=== PATIENT | male | born 1970 | race Caucasian/White ===

== ENCOUNTER 2022-04-14 08:29 | Outpatient (REF) | payer OTHER, SELFPAY ==
--- NOTE | ~2022-04-14 | XR_ITS ---
EXAMINATION: XR ANKLE, RIGHT XR ANKLE, LEFT XR FOOT, RIGHT XR FOOT, LEFT CLINICAL INFORMATION: Gout. COMPARISON: None TECHNIQUE: Each ankle is imaged in 2 views and each foot is imaged in 2 views. There is a lateral view on each side with [id number] to include both the ankle and foot. There are a total of 10 views, 5 on each side. FINDINGS: Right: There is normal bony mineralization. No periarticular demineralization. The ankle and subtalar joints are unremarkable. The retrocalcaneal recess is preserved. There is bulky posterior and moderate plantar calcaneal spurs. The midfoot shows no joint narrowing or erosive change. There is mild degenerative change first MTP. There are osteoarthritic changes third toe DIP joint with questionable small central erosion which may suggest erosive osteoarthropathy. The remainder of the interphalangeal joints are unremarkable. There are no para-articular erosions or mineralized tophus. Left: There is normal bony mineralization. No periarticular demineralization. The ankle and subtalar joints are unremarkable. The retrocalcaneal recess is preserved. There is moderate posterior and small plantar calcaneal spurs. The midfoot shows no joint narrowing or erosive change. There is mild degenerative change first MTP, greater than that on the right with mild medial bunion. There are osteoarthritic changes DIP joints second and third toes. The remainder of the interphalangeal joints are unremarkable. There are no para-articular erosions or mineralized tophus. XR/XR foot RT min 3V IMPRESSION: Right: -Posterior and plantar calcaneal spurs. -Osteoarthritis first MTP. No para-articular erosion or mineralized tophus. -Osteoarthritis third toe DIP joint with questionable small central erosion. Left: -Posterior and plantar calcaneal spurs. -Osteoarthritis first MTP greater than right. No para-articular erosion or mineralized tophus. -Osteoarthritis second and third toe DIP joints. 5. Moderate posterior and moderate plantar calcaneal spurs. 6. Osteoarthritis DIP joints second and third toes. No para-articular erosions or mineralized tophus.
--- NOTE | ~2022-04-14 | XR_ITS ---
EXAMINATION: XR HAND WRIST, RIGHT XR HAND WRIST, LEFT CLINICAL INFORMATION: Arthritis. COMPARISON: None TECHNIQUE: Each hand and wrist are imaged in 3 views. A navicular view of each wrist is also obtained. There are a total of 8 views, 4 on each side. FINDINGS: Right: Normal bony mineralization. No periarticular demineralization. No fracture or dislocation or destructive process. Ulnar variance is neutral. Mild degenerative change first carpometacarpal joint. No carpal erosive change or chondrocalcinosis. Incidental small cyst central lunate. The MCP and PIP joints are unremarkable. There are mild degenerative changes DIP joints, moderate at the fifth finger DIP joint. No erosive change. Left: Normal bony mineralization. No periarticular demineralization. No fracture or dislocation or destructive process. Ulnar variance is neutral. No carpal joint narrowing, erosive change or chondrocalcinosis. Incidental small cyst central lunate. The MCP and PIP joints are unremarkable. There are mild changes DIP joints, moderate to prominent at the fifth finger DIP joint. No erosive change. XR/XR hand wrist RT IMPRESSION: Right: -Mild degenerative change first CMC. -Mild osteoarthritis DIP joints, moderate at fifth finger. Left: -Mild osteoarthritis DIP joints, moderate to prominent at fifth finger.
--- NOTE | ~2022-04-14 | XR_ITS ---
EXAMINATION: XR ANKLE, RIGHT XR ANKLE, LEFT XR FOOT, RIGHT XR FOOT, LEFT CLINICAL INFORMATION: Gout. COMPARISON: None TECHNIQUE: Each ankle is imaged in 2 views and each foot is imaged in 2 views. There is a lateral view on each side with [id number] to include both the ankle and foot. There are a total of 10 views, 5 on each side. FINDINGS: Right: There is normal bony mineralization. No periarticular demineralization. The ankle and subtalar joints are unremarkable. The retrocalcaneal recess is preserved. There is bulky posterior and moderate plantar calcaneal spurs. The midfoot shows no joint narrowing or erosive change. There is mild degenerative change first MTP. There are osteoarthritic changes third toe DIP joint with questionable small central erosion which may suggest erosive osteoarthropathy. The remainder of the interphalangeal joints are unremarkable. There are no para-articular erosions or mineralized tophus. Left: There is normal bony mineralization. No periarticular demineralization. The ankle and subtalar joints are unremarkable. The retrocalcaneal recess is preserved. There is moderate posterior and small plantar calcaneal spurs. The midfoot shows no joint narrowing or erosive change. There is mild degenerative change first MTP, greater than that on the right with mild medial bunion. There are osteoarthritic changes DIP joints second and third toes. The remainder of the interphalangeal joints are unremarkable. There are no para-articular erosions or mineralized tophus. XR/XR foot LT min 3V IMPRESSION: Right: -Posterior and plantar calcaneal spurs. -Osteoarthritis first MTP. No para-articular erosion or mineralized tophus. -Osteoarthritis third toe DIP joint with questionable small central erosion. Left: -Posterior and plantar calcaneal spurs. -Osteoarthritis first MTP greater than right. No para-articular erosion or mineralized tophus. -Osteoarthritis second and third toe DIP joints. 5. Moderate posterior and moderate plantar calcaneal spurs. 6. Osteoarthritis DIP joints second and third toes. No para-articular erosions or mineralized tophus.
--- NOTE | ~2022-04-14 | XR_ITS ---
EXAMINATION: XR ANKLE, RIGHT XR ANKLE, LEFT XR FOOT, RIGHT XR FOOT, LEFT CLINICAL INFORMATION: Gout. COMPARISON: None TECHNIQUE: Each ankle is imaged in 2 views and each foot is imaged in 2 views. There is a lateral view on each side with [id number] to include both the ankle and foot. There are a total of 10 views, 5 on each side. FINDINGS: Right: There is normal bony mineralization. No periarticular demineralization. The ankle and subtalar joints are unremarkable. The retrocalcaneal recess is preserved. There is bulky posterior and moderate plantar calcaneal spurs. The midfoot shows no joint narrowing or erosive change. There is mild degenerative change first MTP. There are osteoarthritic changes third toe DIP joint with questionable small central erosion which may suggest erosive osteoarthropathy. The remainder of the interphalangeal joints are unremarkable. There are no para-articular erosions or mineralized tophus. Left: There is normal bony mineralization. No periarticular demineralization. The ankle and subtalar joints are unremarkable. The retrocalcaneal recess is preserved. There is moderate posterior and small plantar calcaneal spurs. The midfoot shows no joint narrowing or erosive change. There is mild degenerative change first MTP, greater than that on the right with mild medial bunion. There are osteoarthritic changes DIP joints second and third toes. The remainder of the interphalangeal joints are unremarkable. There are no para-articular erosions or mineralized tophus. XR/XR ankle RT min 3V IMPRESSION: Right: -Posterior and plantar calcaneal spurs. -Osteoarthritis first MTP. No para-articular erosion or mineralized tophus. -Osteoarthritis third toe DIP joint with questionable small central erosion. Left: -Posterior and plantar calcaneal spurs. -Osteoarthritis first MTP greater than right. No para-articular erosion or mineralized tophus. -Osteoarthritis second and third toe DIP joints. 5. Moderate posterior and moderate plantar calcaneal spurs. 6. Osteoarthritis DIP joints second and third toes. No para-articular erosions or mineralized tophus.
--- NOTE | ~2022-04-14 | XR_ITS ---
EXAMINATION: XR HAND WRIST, RIGHT XR HAND WRIST, LEFT CLINICAL INFORMATION: Arthritis. COMPARISON: None TECHNIQUE: Each hand and wrist are imaged in 3 views. A navicular view of each wrist is also obtained. There are a total of 8 views, 4 on each side. FINDINGS: Right: Normal bony mineralization. No periarticular demineralization. No fracture or dislocation or destructive process. Ulnar variance is neutral. Mild degenerative change first carpometacarpal joint. No carpal erosive change or chondrocalcinosis. Incidental small cyst central lunate. The MCP and PIP joints are unremarkable. There are mild degenerative changes DIP joints, moderate at the fifth finger DIP joint. No erosive change. Left: Normal bony mineralization. No periarticular demineralization. No fracture or dislocation or destructive process. Ulnar variance is neutral. No carpal joint narrowing, erosive change or chondrocalcinosis. Incidental small cyst central lunate. The MCP and PIP joints are unremarkable. There are mild changes DIP joints, moderate to prominent at the fifth finger DIP joint. No erosive change. XR/XR hand wrist LT IMPRESSION: Right: -Mild degenerative change first CMC. -Mild osteoarthritis DIP joints, moderate at fifth finger. Left: -Mild osteoarthritis DIP joints, moderate to prominent at fifth finger.
--- NOTE | ~2022-04-14 | XR_ITS ---
EXAMINATION: XR ANKLE, RIGHT XR ANKLE, LEFT XR FOOT, RIGHT XR FOOT, LEFT CLINICAL INFORMATION: Gout. COMPARISON: None TECHNIQUE: Each ankle is imaged in 2 views and each foot is imaged in 2 views. There is a lateral view on each side with [id number] to include both the ankle and foot. There are a total of 10 views, 5 on each side. FINDINGS: Right: There is normal bony mineralization. No periarticular demineralization. The ankle and subtalar joints are unremarkable. The retrocalcaneal recess is preserved. There is bulky posterior and moderate plantar calcaneal spurs. The midfoot shows no joint narrowing or erosive change. There is mild degenerative change first MTP. There are osteoarthritic changes third toe DIP joint with questionable small central erosion which may suggest erosive osteoarthropathy. The remainder of the interphalangeal joints are unremarkable. There are no para-articular erosions or mineralized tophus. Left: There is normal bony mineralization. No periarticular demineralization. The ankle and subtalar joints are unremarkable. The retrocalcaneal recess is preserved. There is moderate posterior and small plantar calcaneal spurs. The midfoot shows no joint narrowing or erosive change. There is mild degenerative change first MTP, greater than that on the right with mild medial bunion. There are osteoarthritic changes DIP joints second and third toes. The remainder of the interphalangeal joints are unremarkable. There are no para-articular erosions or mineralized tophus. XR/XR ankle LT min 3V IMPRESSION: Right: -Posterior and plantar calcaneal spurs. -Osteoarthritis first MTP. No para-articular erosion or mineralized tophus. -Osteoarthritis third toe DIP joint with questionable small central erosion. Left: -Posterior and plantar calcaneal spurs. -Osteoarthritis first MTP greater than right. No para-articular erosion or mineralized tophus. -Osteoarthritis second and third toe DIP joints. 5. Moderate posterior and moderate plantar calcaneal spurs. 6. Osteoarthritis DIP joints second and third toes. No para-articular erosions or mineralized tophus.
[2022-04-14 08:56] LABS: MANUAL DIFF FLAG NO
[2022-04-14 09:34] LABS: Basophils Absolute Auto 0.1 X10*3/uL (0.0-0.2); Basophils Percent Auto 1.4 % (0-2); Eosinophils Absolute Auto 0.2 X10*3/uL (0.0-0.4); Eosinophils Percent Auto 3.6 % (0-4); Hemoglobin 15.1 g/dl (14.0-18.0); Imm Gran Abs Auto 0.01 X10*3/uL (0.00-0.03); Imm Gran Pct Auto 0.2 % (0.0-0.4); Lymphocytes Percent Auto 45.6 % (20-40); Mean Corpuscular HGB Conc 35.1 g/dl (31.0-36.0); Mean Corpuscular Hemoglobin 31.4 pg (27.0-33.0); Mean Corpuscular Volume 89.4 fL (80.0-98.0); Mean Platelet Volume 9.3 fL (9.4-12.4); Monocytes Absolute Auto 0.4 X10*3/uL (0.1-1.2); Monocytes Percent Auto 8.8 % (2-11); Neutrophils Absolute Auto 1.8 x10*3/uL (2.0-8.3); Neutrophils Percent Auto 40.4 % (45-73); Platelet Count 278 X10*3/uL (160-400); Red Blood Count 4.81 X10*6/uL (4.60-5.80); White Blood Count 4.4 X10*3/uL (4.8-10.8)
[2022-04-14 09:47] LABS: Estimated Average Glucose 94 mg/dL; Hemoglobin A1c % 4.9 %
[2022-04-14 10:34] LABS: Appearance Urine Clear; Color Urine Yellow; Glucose Urine UA Negative (Negative); Leukocyte Esterase Urine Negative (Negative); Nitrite Urine Negative (Negative); PH 7.5 (5.0-9.0); Urine Blood Negative (Negative); Urine Ketones Negative (Negative); Urine Protein Negative (Neg-Trace)
[2022-04-14 10:39] LABS: Bacteria Urine None Seen (None Seen); Hyaline Casts Urine 0-2 /LPF (0-2); RBC Urine 0-2 /HPF (0-2); Squamous Epithelial Cell Urine 0-2 /HPF (0-2); WBC Urine 0-5 /HPF (0-5)
[2022-04-14 10:58] LABS: Alanine Aminotransferase 25 U/L (0-40); Alkaline Phosphatase 76 U/L (39-117); Anion Gap 14 (12-20); Aspartate Amino Transferase 21 U/L (5-37); Bilirubin Total 0.5 mg/dL (0.0-1.0); Blood Urea Nitrogen 13 mg/dL (9-16); Calcium 8.8 mg/dL (8.4-10.2); Carbon Dioxide 25 mmol/L (22-29); Chloride 106 mmol/L (96-108); Estimated Glomerular Filt Rate > 60; Glucose Random 106 mg/dL (60-115); Potassium 4.1 mmol/L (3.3-5.1); Sodium 141 mmol/L (135-145); Total Protein 6.9 g/dL (6.5-8.0); Uric Acid 7.1 mg/dL (3.4-7.0)
[2022-04-14 11:04] LABS: Total Protein Urine Random < 7 mg/dL (<12)
== END 2022-04-14 08:30 | disposition home or self-care (01) ==
LOC: HO.LAB 08:29
PROVIDERS: PCP Internal Medicine; Visit Provider Student in an Organized Health Care Education/Training Program
DX: M10.9 Gout, unspecified (principal); E66.9 Obesity, unspecified
CPT/HCPCS: 36415; 73110; 73130; 73610; 73630; 80053; 81001; 83036; 84156; 84550; 85025

== ENCOUNTER 2022-06-29 14:30 | Outpatient (REF) | payer OTHER, SELFPAY ==
[2022-06-29 14:45] LABS: MANUAL DIFF FLAG NO
[2022-06-29 14:58] LABS: Basophils Absolute Auto 0.1 X10*3/uL (0.0-0.2); Basophils Percent Auto 0.9 % (0-2); Eosinophils Absolute Auto 0.2 X10*3/uL (0.0-0.4); Eosinophils Percent Auto 3.3 % (0-4); Hematocrit 44.1 % (42.0-52.0); Hemoglobin 15.5 g/dl (14.0-18.0); Imm Gran Abs Auto 0.01 X10*3/uL (0.00-0.03); Imm Gran Pct Auto 0.1 % (0.0-0.4); Lymphocytes Absolute Auto 2.9 X10*3/uL (1.2-4.9); Lymphocytes Percent Auto 41.8 % (20-40); Mean Corpuscular HGB Conc 35.1 g/dl (31.0-36.0); Mean Corpuscular Volume 88.2 fL (80.0-98.0); Mean Platelet Volume 8.9 fL (9.4-12.4); Monocytes Absolute Auto 0.4 X10*3/uL (0.1-1.2); Monocytes Percent Auto 6.4 % (2-11); Neutrophils Absolute Auto 3.3 x10*3/uL (2.0-8.3); Neutrophils Percent Auto 47.5 % (45-73); Platelet Count 287 X10*3/uL (160-400); White Blood Count 6.9 X10*3/uL (4.8-10.8)
[2022-06-29 15:41] LABS: Alanine Aminotransferase 28 U/L (0-40); Alkaline Phosphatase 72 U/L (39-117); Anion Gap 13 (12-20); Aspartate Amino Transferase 21 U/L (5-37); Bilirubin Total 0.4 mg/dL (0.0-1.0); Blood Urea Nitrogen 13 mg/dL (9-16); Calcium 9.2 mg/dL (8.4-10.2); Carbon Dioxide 31 mmol/L (22-29); Chloride 102 mmol/L (96-108); Estimated Glomerular Filt Rate > 60; Glucose Random 113 mg/dL (60-115); Sodium 142 mmol/L (135-145)
== END 2022-06-29 14:31 | disposition home or self-care (01) ==
LOC: HO.LAB 14:30
PROVIDERS: PCP Internal Medicine; Visit Provider Student in an Organized Health Care Education/Training Program
DX: M10.9 Gout, unspecified (principal)
CPT/HCPCS: 36415; 80053; 84550; 85025

== ENCOUNTER → 2022-07-05 14:54 | Outpatient (BNVA) | payer OTHER, SELFPAY | PROVIDERS: PCP Internal Medicine; Visit Provider Student in an Organized Health Care Education/Training Program | DX: Z13.89 Encounter for screening for other disorder (principal) ==

== ENCOUNTER 2023-02-07 15:46 | Outpatient (REF) | payer OTHER, SELFPAY ==
[2023-02-07 15:57] LABS: MANUAL DIFF FLAG NO
[2023-02-07 16:32] LABS: Basophils Absolute Auto 0.1 X10*3/uL (0.0-0.2); Eosinophils Absolute Auto 0.2 X10*3/uL (0.0-0.4); Eosinophils Percent Auto 2.2 % (0-4); Hematocrit 42.9 % (42.0-52.0); Hemoglobin 15.1 g/dl (14.0-18.0); Imm Gran Abs Auto 0.02 X10*3/uL (0.00-0.03); Imm Gran Pct Auto 0.3 % (0.0-0.4); Lymphocytes Absolute Auto 2.7 X10*3/uL (1.2-4.9); Lymphocytes Percent Auto 37.4 % (20-40); Mean Corpuscular HGB Conc 35.2 g/dl (31.0-36.0); Mean Corpuscular Hemoglobin 31.5 pg (27.0-33.0); Mean Corpuscular Volume 89.4 fL (80.0-98.0); Mean Platelet Volume 9.3 fL (9.4-12.4); Monocytes Absolute Auto 0.6 X10*3/uL (0.1-1.2); Monocytes Percent Auto 8.8 % (2-11); Neutrophils Absolute Auto 3.7 x10*3/uL (2.0-8.3); Neutrophils Percent Auto 50.3 % (45-73); Platelet Count 303 X10*3/uL (160-400); Red Cell Distribution Width 12.2 % (11.0-16.0); White Blood Count 7.3 X10*3/uL (4.8-10.8)
[2023-02-07 17:12] LABS: Alanine Aminotransferase 26 U/L (0-40); Alkaline Phosphatase 70 U/L (39-117); Anion Gap 16 (12-20); Aspartate Amino Transferase 21 U/L (5-37); Bilirubin Total 0.3 mg/dL (0.0-1.0); Blood Urea Nitrogen 10 mg/dL (9-16); Calcium 8.9 mg/dL (8.4-10.2); Carbon Dioxide 22 mmol/L (22-29); Chloride 105 mmol/L (96-108); Estimated Glomerular Filt Rate > 60; Glucose Random 102 mg/dL (60-115); Potassium 3.8 mmol/L (3.3-5.1); Sodium 139 mmol/L (135-145); Total Protein 7.2 g/dL (6.5-8.0); Uric Acid 8.7 mg/dL (3.4-7.0)
== END 2023-02-07 15:47 | disposition home or self-care (01) ==
LOC: HO.LAB 15:46
PROVIDERS: PCP Internal Medicine; Visit Provider Student in an Organized Health Care Education/Training Program
DX: M10.9 Gout, unspecified (principal)
CPT/HCPCS: 36415; 80053; 84550; 85025

== ENCOUNTER 2023-02-12 15:13 | Outpatient (AMB) | payer OTHER, SELFPAY ==
[2023-02-12 15:20] VITALS: BP 120/80; PULSE 88; TEMP 36.7; O2SAT 97; BMI 33.5
--- NOTE | 2023-02-12 15:20 | A.OFFVIS_ITS ---
Intake Vital Signs 02/12/23 15:20 Height 5 ft 6 in Weight 207 lb 10.807 oz BMI 33.5 BP 120/80 Blood Pressure Location Rt brachial Position Sitting Pulse 88 Pulse Source Pulse Oximeter Temp 98.0 F Temp Source Skin Pulse Oximetry (%) 97 Intake Visit Reasons: Gout Intake Note: Pt seen today for gout follow up. Reports inflammed knee/leg, saw PCP, who rx'd meloxicam but he never took it. 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 Accompanied by: Self / Same As Patient Allergies indomethacin Adverse Reaction (Intermediate, Verified 02/12/23 15:22) Gastrointestinal Upset erythromycin base Adverse Reaction (Unknown, Verified 02/12/23 15:22) Unknown Medication List - Last Reconciled 02/12/23 by Rachel Helms MD acetaminophen (Tylenol Extra Strength) 1,000 mg PO Q6H PRN allopurinol Take 1 tab daily for 2 weeks then 2 tabs daily colchicine (gout) Take 1 tab twice daily for 2 weeks then remain on 1 tab daily ibuprofen 1,800 mg PO Q8H PRN loratadine (Claritin) 10 mg PO DAILY HPI HPI Comments History of Present Illness Details 52-year-old male with gout returns for follow-up. About a month ago patient started having abrupt onset of right knee pain and swelling, the pain was so severe he could not go to work. he saw his PCP who prescribed him meloxicam in he did not take it. He took ibuprofen and iced it and it resolved in about 1 week. Currently his right knee pain is within normal. Denies any other joint pain or swelling. He has cut down significantly on beer drinking. Initial history: This is a 51-year-old male with a past medical history of nephrolithiasis s/p urologic procedure, dyslipidemia who presents for evaluation of possible gout. Condition started about 2 years ago with episodes of either right or left big toe pain swelling and erythema. To the point that he cannot walk or wear his shoes. Attacks usually resolve in a few days using NSAIDs, indomethacin or Motrin. He had 2 gout attacks this year, 1 in June and another 1 in August. He denies any other joint pain or swelling except for occasional stiffness of his right middle finger PIP and right thumb. He has history of kidney stones, he mentions more than 15 years ago he had a urologic procedure. He does not recall the kidney stone type. Has not had any recurrent kidney stones since the procedure. [facility] Medical History Acute gout involving toe of right foot GERD (gastroesophageal reflux disease) Hyperlipidemia Nephrolithiasis Obesity Surgical History Hx of removal of cyst Family History Mother Arthritis Breast cancer Father No problems noted. 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 [employer] Denies arthralgias and Denies joint swelling Physical Exam Vital Signs: Last Vital Signs Temp 98.0 F 02/12/23 15:20 Pulse 88 02/12/23 15:20 BP 120/80 02/12/23 15:20 Pulse Ox 97 02/12/23 15:20 BMI result Body Mass Index 33.5 Const General: cooperative, healthy appearing, comfortable and no acute distress Nutritional Appearance: obese Orientation/consciousness: patient oriented x3 Limitations: no limitations HEENT Head: Yes normocephalic and Yes atraumatic Resp Effort & Inspection: normal respiratory effort and able to speak in complete sentences Neuro General: patient oriented x3 Extrem Other: Osteoarthritic changes of his hands with Heberden's nodes especially of his little fingers bilaterally No tophi noted Assessment & Plan Assessment & Plan (1) Gout: Code(s): M10.9 - Gout, unspecified Qualifiers: Gout site: toe Gout etiology: idiopathic Chronicity: chronic Laterality: unspecified laterality Presence of tophus: without tophus Qualified Code(s): M1A.0790 - Idiopathic chronic gout, unspecified ankle and foot, without tophus (tophi) Plan: This is a 52-year-old male with gout presents for follow-up. He had 2 gout flares in 2021. Another gout flare affecting his right knee 01/2023. Clinical picture consistent with gout. We discussed starting allopurinol and colchicine last visit however patient wanted to do some lifestyle modification and evaluate his symptoms. Patient had another gout flare as mentioned above. His uric acid level increased to 8.7 from 7.0. Today patient is agreeable to start urate lowering therapy. Start allopurinol 100 mg daily for 2 weeks then 200 mg daily until next visit Start colchicine 0.6 mg twice daily for 2 weeks then 0.6 mg daily Labs before next visit in 3 months Plan I spent 26 minutes reviewing patient's chart, evaluating patient, ordering diagnostic workup, counseling patient and documenting in the chart Orders: Orders Comprehensive Met. Panel 3 Months M10.9 - Gout, unspecified Uric Acid 3 Months M10.9 - Gout, unspecified Complete Blood Count Auto Diff 3 Months M10.9 - Gout, unspecified Medications: New allopurinol Take 1 tab daily for 2 weeks then 2 tabs daily 180 tabs 0RF colchicine (gout) Take 1 tab twice daily for 2 weeks then remain on 1 tab daily 114 tabs 0RF Coding Level of Care Code Est Pt Level 4 (69548) Diagnoses Gout M1A.0790 Gout site: toe Gout etiology: idiopathic Chronicity: chronic Laterality: unspecified laterality Presence of tophus: without tophus
== END 2023-02-12 16:08 | disposition home or self-care (01) ==
PROVIDERS: PCP Internal Medicine; Visit Provider Student in an Organized Health Care Education/Training Program
DX: M1A.0790 Idiopathic chronic gout, unspecified ankle and foot, without tophus (tophi) (principal)
CPT/HCPCS: 99214

== ENCOUNTER → 2023-02-12 15:13 | Outpatient (BNVA) | payer OTHER, SELFPAY | PROVIDERS: PCP Internal Medicine; Visit Provider Student in an Organized Health Care Education/Training Program ==

== ENCOUNTER 2023-05-17 15:59 | Outpatient (REF) | payer OTHER, SELFPAY ==
[2023-05-17 16:11] LABS: MANUAL DIFF FLAG NO
[2023-05-17 17:39] LABS: Basophils Absolute Auto 0.1 X10*3/uL (0.0-0.2); Basophils Percent Auto 0.9 % (0-2); Eosinophils Absolute Auto 0.3 X10*3/uL (0.0-0.4); Eosinophils Percent Auto 3.5 % (0-4); Hematocrit 43.2 % (42.0-52.0); Hemoglobin 15.3 g/dl (14.0-18.0); Imm Gran Abs Auto 0.02 X10*3/uL (0.00-0.03); Imm Gran Pct Auto 0.3 % (0.0-0.4); Lymphocytes Absolute Auto 2.7 X10*3/uL (1.2-4.9); Mean Corpuscular HGB Conc 35.4 g/dl (31.0-36.0); Mean Corpuscular Volume 90.4 fL (80.0-98.0); Mean Platelet Volume 9.7 fL (9.4-12.4); Monocytes Absolute Auto 0.6 X10*3/uL (0.1-1.2); Monocytes Percent Auto 8.2 % (2-11); Neutrophils Percent Auto 52.1 % (45-73); Platelet Count 304 X10*3/uL (160-400); Red Blood Count 4.78 X10*6/uL (4.60-5.80); Red Cell Distribution Width 12.5 % (11.0-16.0); White Blood Count 7.7 X10*3/uL (4.8-10.8)
[2023-05-17 18:23] LABS: Alanine Aminotransferase 28 U/L (0-40); Albumin Level 4.1 g/dL (3.5-5.0); Alkaline Phosphatase 76 U/L (39-117); Anion Gap 13 (12-20); Aspartate Amino Transferase 22 U/L (5-37); Bilirubin Total 0.3 mg/dL (0.0-1.0); Blood Urea Nitrogen 15 mg/dL (9-16); Calcium 9.3 mg/dL (8.4-10.2); Carbon Dioxide 31 mmol/L (22-29); Chloride 104 mmol/L (96-108); Estimated Glomerular Filt Rate > 60; Glucose Random 96 mg/dL (60-115); Potassium 3.6 mmol/L (3.3-5.1); Sodium 144 mmol/L (135-145); Total Protein 7.3 g/dL (6.5-8.0); Uric Acid 5.8 mg/dL (3.4-7.0)
== END 2023-05-17 16:00 | disposition home or self-care (01) ==
LOC: HO.LAB 15:59
PROVIDERS: PCP Internal Medicine; Visit Provider Student in an Organized Health Care Education/Training Program
DX: M10.9 Gout, unspecified (principal)
CPT/HCPCS: 36415; 80053; 84550; 85025

== ENCOUNTER 2023-05-23 15:48 | Outpatient (AMB) | payer OTHER, SELFPAY ==
--- NOTE | 2023-05-23 15:51 | A.OFFVIS_ITS ---
Intake Vital Signs 05/23/23 15:55 Height 5 ft 6 in Weight 207 lb 3.752 oz BMI 33.4 BP 118/84 Blood Pressure Location Rt brachial Position Sitting Pulse 90 Pulse Source Pulse Oximeter Temp 97.4 F Temp Source Skin Pulse Oximetry (%) 95 Oxygen Delivery Method Room Air Intake Visit Reasons: Gout Intake Note: Patient last seen 02/12/23, presents today for follow up and test results. 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 Accompanied by: Self / Same As Patient Allergies colchicine Adverse Reaction (Intermediate, Verified 05/23/23 16:10) Diarrhea indomethacin Adverse Reaction (Intermediate, Verified 05/23/23 15:56) Gastrointestinal Upset erythromycin base Adverse Reaction (Unknown, Verified 05/23/23 15:56) Unknown Medication List - Last Reconciled 05/23/23 by Rachel Helms MD acetaminophen (Tylenol Extra Strength) 1,000 mg PO Q6H PRN allopurinol 200 mg (2 x 100 mg) PO DAILY ibuprofen 1,800 mg PO Q8H PRN loratadine (Claritin) 10 mg PO DAILY HPI HPI Comments History of Present Illness Details 52-year-old male with gout returns for f ollow-up. On allopurinol 200 mg daily. After last visit he took colchicine and could not tolerate it due to GI upset and diarrhea. It had to be stopped. In the 1st few weeks after he started allopurinol he had me knee gout flare-ups affecting his right knee and right ankle which rapidly resolved with ibuprofen for 2 days. Since then he has been doing well overall. He feels that the bony swelling on his right foot bunion has shrunk. Feels that the stiffness and pain in his hands is improving. Overall feeling great. Initial history: This is a 51-year-old male with a past medical history of nephrolithiasis s/p urologic procedure, dyslipidemia who presents for evaluation of possible gout. Condition started about 2 years ago with episodes of either right or left big toe pain swelling and erythema. To the point that he cannot walk or wear his shoes. Attacks usually resolve in a few days using NSAIDs, indomethacin or Motrin. He had 2 gout attacks this year, 1 in June and another 1 in August. He denies any other joint pain or swelling except for occasional stiffness of his right middle finger PIP and right thumb. He has history of kidney stones, he mentions more than 15 years ago he had a urologic procedure. He does not recall the kidney stone type. Has not had any recurrent kidney stones since the procedure. [facility] Medical History Nephrolithiasis Obesity Acute gout involving toe of right foot Hyperlipidemia GERD (gastroesophageal reflux disease) Surgical History Hx of removal of cyst Family History Mother Arthritis Breast cancer Father No problems noted. 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 [employer] Denies arthralgias and Denies joint swelling Physical Exam Const General: cooperative, healthy appearing, comfortable and no acute distress Nutritional Appearance: obese Orientation/consciousness: patient oriented x3 Limitations: no limitations HEENT Head: Yes normocephalic and Yes atraumatic Resp Effort & Inspection: normal respiratory effort and able to speak in complete sentences Neuro General: patient oriented x3 Extrem Other: Osteoarthritic changes of his hands with Heberden's nodes especially of his little fingers bilaterally Bilateral bunions No tender joints No tophi noted Assessment & Plan Assessment & Plan (1) Gout: Comment: dx 2021 Allopurinol 02/2023 effective, couldn't tolerate colchicine Code(s): M10.9 - Gout, unspecified Qualifiers: Gout site: toe Gout etiology: idiopathic Chronicity: chronic Laterality: unspecified laterality Presence of tophus: without tophus Qualified Code(s): M1A.0790 - Idiopathic chronic gout, unspecified ankle and foot, without tophus (tophi) Plan: This is a 52-year-old male with gout presents for follow-up. On allopurinol 200 mg daily. Could not tolerate colchicine even 1 tab daily due to GI upset and diarrhea. Doing much better overall. Uric acid level is 5.8 at target Continue allopurinol 200 mg daily Labs before next visit in 4 months Plan I spent 16 minutes reviewing patient's chart, evaluating patient, ordering diagnostic workup, counseling patient and documenting in the chart Orders: Orders Complete Blood Count Auto Diff 4 Months M10.9 - Gout, unspecified Comprehensive Met. Panel 4 Months M10.9 - Gout, unspecified Uric Acid 4 Months M10.9 - Gout, unspecified Coding Level of Care Code Est Pt Level 3 (06629) Diagnoses Chronic idiopathic gout involving toe without tophus, unspecified laterality M1A.0790 Gout site: toe Gout etiology: idiopathic Chronicity: chronic Laterality: unspecified laterality Presence of tophus: without tophus
[2023-05-23 15:55] VITALS: BP 118/84; PULSE 90; TEMP 36.3; O2SAT 95; BMI 33.4
== END 2023-05-23 16:09 | disposition home or self-care (01) ==
PROVIDERS: PCP Internal Medicine; Visit Provider Student in an Organized Health Care Education/Training Program
DX: M1A.0790 Idiopathic chronic gout, unspecified ankle and foot, without tophus (tophi) (principal)
CPT/HCPCS: 99213

== ENCOUNTER → 2023-05-23 15:48 | Outpatient (BNVA) | payer OTHER, SELFPAY | PROVIDERS: PCP Internal Medicine; Visit Provider Student in an Organized Health Care Education/Training Program ==

== ENCOUNTER 2023-09-21 07:39 | Outpatient (REF) | payer OTHER, SELFPAY ==
[2023-09-21 07:55] LABS: MANUAL DIFF FLAG NO
[2023-09-21 08:05] LABS: Basophils Absolute Auto 0.1 X10*3/uL (0.0-0.2); Basophils Percent Auto 1.1 % (0-2); Eosinophils Absolute Auto 0.2 X10*3/uL (0.0-0.4); Eosinophils Percent Auto 4.4 % (0-4); Hematocrit 45.1 % (42.0-52.0); Imm Gran Abs Auto 0.01 X10*3/uL (0.00-0.03); Imm Gran Pct Auto 0.2 % (0.0-0.4); Lymphocytes Absolute Auto 2.4 X10*3/uL (1.2-4.9); Lymphocytes Percent Auto 46.3 % (20-40); Mean Corpuscular HGB Conc 35.5 g/dl (31.0-36.0); Mean Corpuscular Hemoglobin 31.8 pg (27.0-33.0); Mean Corpuscular Volume 89.7 fL (80.0-98.0); Monocytes Absolute Auto 0.3 X10*3/uL (0.1-1.2); Monocytes Percent Auto 5.9 % (2-11); Neutrophils Absolute Auto 2.2 x10*3/uL (2.0-8.3); Neutrophils Percent Auto 42.1 % (45-73); Platelet Count 279 X10*3/uL (160-400); Red Blood Count 5.03 X10*6/uL (4.60-5.80); Red Cell Distribution Width 12.1 % (11.0-16.0); White Blood Count 5.2 X10*3/uL (4.8-10.8)
[2023-09-21 08:46] LABS: Alanine Aminotransferase 29 U/L (0-40); Albumin Level 3.9 g/dL (3.5-5.0); Alkaline Phosphatase 75 U/L (39-117); Anion Gap 13 (12-20); Aspartate Amino Transferase 19 U/L (5-37); Bilirubin Total 0.3 mg/dL (0.0-1.0); Blood Urea Nitrogen 14 mg/dL (9-16); Calcium 8.9 mg/dL (8.4-10.2); Carbon Dioxide 26 mmol/L (22-29); Chloride 107 mmol/L (96-108); Estimated Glomerular Filt Rate > 60; Glucose Random 119 mg/dL (60-115); Potassium 3.8 mmol/L (3.3-5.1); Sodium 142 mmol/L (135-145); Uric Acid 6.2 mg/dL (3.4-7.0)
== END 2023-09-21 07:40 | disposition home or self-care (01) ==
LOC: HO.LAB 07:39
PROVIDERS: PCP Internal Medicine; Visit Provider Student in an Organized Health Care Education/Training Program
DX: M10.9 Gout, unspecified (principal)
CPT/HCPCS: 36415; 80053; 84550; 85025

== ENCOUNTER 2023-09-24 14:19 | Outpatient (AMB) | payer OTHER, SELFPAY ==
--- NOTE | 2023-09-24 14:21 | A.OFFVIS_ITS ---
Intake Vital Signs 09/24/23 14:23 Height 5 ft 6 in Weight 210 lb 1.608 oz BMI 33.9 BP 126/72 Blood Pressure Location Rt brachial Position Sitting Pulse 90 Pulse Source Pulse Oximeter Pulse Oximetry (%) 96 Oxygen Delivery Method Room Air Intake Visit Reasons: Gout Intake Note: Patient last seen 05/23/23 presents today for follow up and test results. 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: No Accompanied by: Self / Same As Patient Allergies colchicine Adverse Reaction (Intermediate, Verified 09/24/23 14:25) Diarrhea indomethacin Adverse Reaction (Intermediate, Verified 09/24/23 14:25) Gastrointestinal Upset erythromycin base Adverse Reaction (Unknown, Verified 09/24/23 14:25) Unknown Medication List - Last Reconciled 09/24/23 by Rachel Helms MD acetaminophen (Tylenol Extra Strength) 1,000 mg PO Q6H PRN allopurinol 200 mg (2 x 100 mg) PO DAILY ibuprofen 1,800 mg PO Q8H PRN loratadine (Claritin) 10 mg PO DAILY HPI HPI Comments History of Present Illness Details 52-year-old male with gout returns for f ollow-up. On allopurinol 200 mg daily. Has been doing fairly well overall. Low back stiffness in the morning, improves with moving around. He also has been having some aching pain in the 5th fingers DIPs recently symptoms are quite mild. Has not had any gout flare-ups Initial history: This is a 51-year-old male with a past medical history of nephrolithiasis s/p urologic procedure, dyslipidemia who presents for evaluation of possible gout. Condition started about 2 years ago with episodes of either right or left big toe pain swelling and erythema. To the point that he cannot walk or wear his shoes. Attacks usually resolve in a few days using NSAIDs, indomethacin or Motrin. He had 2 gout attacks this year, 1 in June and another 1 in August. He denies any other joint pain or swelling except for occasional stiffness of his right middle finger PIP and right thumb. He has history of kidney stones, he mentions more than 15 years ago he had a urologic procedure. He does not recall the kidney stone type. Has not had any recurrent kidney stones since the procedure. [facility] Medical History Nephrolithiasis Obesity Acute gout involving toe of right foot Hyperlipidemia GERD (gastroesophageal reflux disease) Surgical History Hx of removal of cyst Family History Mother Arthritis Breast cancer Father No problems noted. Social History Household Members: Spouse Household Members Other:: Son Alcohol intake: current Alcohol intake frequency: a few times a month Patient Tobacco Use Status: Never used Tobacco Current occupational status: employed Current occupation: [employer] Review of Systems Musc Reports back pain, Reports arthralgias and Reports stiffness Physical Exam Vital Signs: Last Vital Signs Pulse 90 09/24/23 14:23 BP 126/72 09/24/23 14:23 Pulse Ox 96 09/24/23 14:23 Oxygen Delivery Method Room Air 09/24/23 14:23 BMI result Body Mass Index 33.9 Const General: cooperative, healthy appearing, comfortable and no acute distress Nutritional Appearance: obese Orientation/consciousness: patient oriented x3 Limitations: no limitations HEENT Head: Yes normocephalic and Yes atraumatic Resp Effort & Inspection: normal respiratory effort and able to speak in complete sentences Neuro General: patient oriented x3 Extrem Other: Osteoarthritic changes of his hands with Heberden's nodes especially of his little fingers bilaterally Bilateral bunions No tender joints No tophi noted Assessment & Plan Assessment & Plan (1) Gout: Comment: dx 2021 Allopurinol 02/2023 effective, couldn't tolerate colchicine Code(s): M10.9 - Gout, unspecified Qualifiers: Gout site: toe Gout etiology: idiopathic Chronicity: chronic Laterality: unspecified laterality Presence of tophus: without tophus Qualified Code(s): M1A.0790 - Idiopathic chronic gout, unspecified ankle and foot, without tophus (tophi) Plan: This is a 52-year-old male with gout presents for follow-up. On allopurinol 200 mg daily. Doing much better overall. No gout flare-ups since last visit. Uric acid level is 6.2 not at target C increase allopurinol to 300 mg daily. Patient states that he just got a shipment of 100 mg allopurinol. Advised patient to take 300 mg daily. Advised patient to call the clinic as soon as he is about to run out and I will prescribe the 300 mg tablets Labs before next visit in 4 months (2) Osteoarthritis of hands, bilateral: Code(s): M19.041 - Primary osteoarthritis, right hand; M19.042 - Primary osteoarthritis, left hand Qualifiers: Osteoarthritis type: primary Qualified Code(s): M19.041 - Primary osteoarthritis, right hand; M19.042 - Primary osteoarthritis, left hand Plan: Discussed management of hand osteoarthritis. Discussed occupational therapy. Patient is not interested. He will consider buying [id number] finger splints Plan I spent 26 minutes reviewing patient's chart, evaluating patient, ordering diagnostic workup, counseling patient and documenting in the chart Orders: Orders Uric Acid 4 Months M1A.0790 - Idiopathic chronic gout, unspecified ankle and foot, without tophus (tophi) Comprehensive Met. 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
[2023-09-24 14:23] VITALS: BP 126/72; PULSE 90; O2SAT 96; BMI 33.9
== END 2023-09-24 14:40 | disposition home or self-care (01) ==
PROVIDERS: PCP Internal Medicine; Visit Provider Student in an Organized Health Care Education/Training Program
DX: M1A.0790 Idiopathic chronic gout, unspecified ankle and foot, without tophus (tophi) (principal); M19.041 Primary osteoarthritis, right hand; M19.042 Primary osteoarthritis, left hand
CPT/HCPCS: 99214

== ENCOUNTER → 2023-09-24 14:19 | Outpatient (BNVA) | payer OTHER, SELFPAY | PROVIDERS: PCP Internal Medicine; Visit Provider Student in an Organized Health Care Education/Training Program ==

== ENCOUNTER 2024-03-20 16:13 | Outpatient (REF) | payer OTHER, SELFPAY ==
[2024-03-20 17:41] LABS: Alanine Aminotransferase 29 U/L (0-40); Albumin Level 4.1 g/dL (3.5-5.0); Alkaline Phosphatase 77 U/L (39-117); Anion Gap 13 (12-20); Aspartate Amino Transferase 23 U/L (5-37); Bilirubin Total 0.3 mg/dL (0.0-1.0); Blood Urea Nitrogen 11 mg/dL (9-16); Calcium 9.4 mg/dL (8.4-10.2); Carbon Dioxide 28 mmol/L (22-29); Chloride 107 mmol/L (96-108); Estimated Glomerular Filt Rate > 60; Glucose Random 129 mg/dL (60-115); Sodium 144 mmol/L (135-145); Total Protein 7.1 g/dL (6.5-8.0); Uric Acid 5.2 mg/dL (3.4-7.0)
== END 2024-03-20 16:14 | disposition home or self-care (01) ==
LOC: HO.LAB 16:13
PROVIDERS: PCP Internal Medicine; Visit Provider Student in an Organized Health Care Education/Training Program
DX: M1A.0790 Idiopathic chronic gout, unspecified ankle and foot, without tophus (tophi) (principal)
CPT/HCPCS: 36415; 80053; 84550

== ENCOUNTER 2024-03-26 15:14 | Outpatient (AMB) | payer OTHER, SELFPAY ==
--- NOTE | 2024-03-26 15:17 | MHC.OFFVIS ---
Vital Signs 03/26/24 15:21 Height 5 ft 6 in Weight 211 lb 3.245 oz BMI 34.1 BP 124/72 Blood Pressure Location Lt brachial Position Sitting Pulse 76 Pulse Source Pulse Oximeter Pulse Oximetry (%) 98 Oxygen Delivery Method Room Air Intake Visit Reasons: Gout/cm Intake Note: Patient presents for Gout. Allergies colchicine Adverse Reaction (Intermediate, Verified 03/26/24 15:20) Diarrhea indomethacin Adverse Reaction (Intermediate, Verified 03/26/24 15:20) Gastrointestinal Upset erythromycin base Adverse Reaction (Unknown, Verified 03/26/24 15:20) Unknown Medication List - Last Reconciled 03/26/24 by Rachel Helms MD acetaminophen (Tylenol Extra Strength) 1,000 mg PO Q6H PRN allopurinol 300 mg PO DAILY 90 days ibuprofen 1,800 mg PO Q8H PRN loratadine (Claritin) 10 mg PO DAILY HPI Comments Details: 53-year-old male with gout returns for follow-up. On allopurinol 300 mg daily. Well-tolerated. Has not had any gout flare-ups since last visit. He states that the door closed on his right pinky 3 days ago. It was quite painful initially it was improving. He has been taking ibuprofen twice a day for the last 2 or 3 days. Initial history: This is a 51-year-old male with a past medical history of nephrolithiasis s/p urologic procedure, dyslipidemia who presents for evaluation of possible gout. Condition started about 2 years ago with episodes of either right or left big toe pain swelling and erythema. To the point that he cannot walk or wear his shoes. Attacks usually resolve in a few days using NSAIDs, indomethacin or Motrin. He had 2 gout attacks this year, 1 in June and another 1 in August. He denies any other joint pain or swelling except for occasional stiffness of his right middle finger PIP and right thumb. He has history of kidney stones, he mentions more than 15 years ago he had a urologic procedure. He does not recall the kidney stone type. Has not had any recurrent kidney stones since the procedure. [facility] Medical History Nephrolithiasis Obesity Acute gout involving toe of right foot Hyperlipidemia GERD (gastroesophageal reflux disease) Surgical History Hx of removal of cyst Family History Mother Arthritis Breast cancer Father No problems noted. 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 Review of Systems Musc Reports arthralgias and Reports joint swelling Physical Exam Vital Signs: Last Vital Signs Pulse 76 03/26/24 15:21 BP 124/72 03/26/24 15:21 Pulse Ox 98 03/26/24 15:21 Oxygen Delivery Method Room Air 03/26/24 15:21 BMI result Body Mass Index 34.1 Const General: cooperative, healthy appearing, comfortable and no acute distress Nutritional Appearance: obese Orientation/consciousness: patient oriented x3 Limitations: no limitations HEENT Head: Yes normocephalic and Yes atraumatic Resp Effort & Inspection: normal respiratory effort and able to speak in complete sentences Neuro General: patient oriented x3 Extrem Other: Minimal erythema of the right pinky finger starting at the MCP and extending just proximal to the PIP not swollen, only minimally tender to palpation Osteoarthritic changes of his hands with Heberden's nodes especially of his little fingers bilaterally Bilateral bunions No tender joints No tophi noted Assessment & Plan Assessment & Plan (1) Gout: Comment: dx 2021 Allopurinol 02/2023 effective, couldn't tolerate colchicine Code(s): M10.9 - Gout, unspecified Category: Medical Qualifiers: Gout site: toe Gout etiology: idiopathic Chronicity: chronic Laterality: unspecified laterality Presence of tophus: without tophus Qualified Code(s): M1A.0790 - Idiopathic chronic gout, unspecified ankle and foot, without tophus (tophi) Plan: This is a 53-year-old male with gout presents for follow-up. On allopurinol 300 mg daily. Doing very well overall. No gout flare-ups since last visit. Uric acid level is 5.2 mg/dL at target Continue current dose Labs before next visit in 6 months (2) Osteoarthritis of hands, bilateral: Code(s): M19.041 - Primary osteoarthritis, right hand; M19.042 - Primary osteoarthritis, left hand Category: Medical Qualifiers: Osteoarthritis type: primary Qualified Code(s): M19.041 - Primary osteoarthritis, right hand; M19.042 - Primary osteoarthritis, left hand Plan: Not symptomatic currently (3) Swelling of right little finger: Code(s): M79.89 - Other specified soft tissue disorders Category: Medical Plan: Door clothes on his right little finger 3 days ago. Already improving. Low suspicion of fracture. Advised patient to ice it and use NSAIDs as needed. If no improvement in a 4 weeks we can consider doing an x-ray to rule out a fracture Plan I spent 26 minutes reviewing patient's chart, evaluating patient, ordering diagnostic workup, counseling patient and documenting in the chart Orders: Orders Basic Metabolic Panel 6 Months M1A.789 - Idiopathic chronic gout, unspecified ankle and foot, without tophus (tophi) Uric Acid 6 Months M1A.789 - Idiopathic chronic gout, unspecified ankle and foot, without tophus (tophi) Medications: Changed From allopurinol 300 mg (3 x 100 mg) PO DAILY 30 days 90 tabs 0RF M1A.789 - Idiopathic chronic gout, unspecified ankle and foot, without tophus (tophi) To allopurinol 300 mg PO DAILY 90 days 90 tabs 1RF M1A.90 - Idiopathic chronic gout, unspecified ankle and foot, without tophus (tophi) Coding Level of Care Code Est Pt Level 4 (69050) Diagnoses Chronic idiopathic gout involving toe without tophus, unspecified laterality M1A.0790 Gout site: toe Gout etiology: idiopathic Chronicity: chronic Laterality: unspecified laterality Presence of tophus: without tophus Primary osteoarthritis of both hands M19.041; M19.042 Osteoarthritis type: primary Swelling of right little finger M79.89
[2024-03-26 15:21] VITALS: BP 124/72; PULSE 76; O2SAT 98; BMI 34.1
== END 2024-03-26 15:41 | disposition home or self-care (01) ==
PROVIDERS: PCP Internal Medicine; Visit Provider Student in an Organized Health Care Education/Training Program
DX: M1A.0790 Idiopathic chronic gout, unspecified ankle and foot, without tophus (tophi) (principal); M19.041 Primary osteoarthritis, right hand; M19.042 Primary osteoarthritis, left hand; M79.89 Other specified soft tissue disorders
CPT/HCPCS: 99214

== ENCOUNTER → 2024-03-26 15:14 | Outpatient (BNVA) | payer OTHER, SELFPAY | PROVIDERS: PCP Internal Medicine; Visit Provider Student in an Organized Health Care Education/Training Program ==

== ENCOUNTER 2024-07-25 08:04 | Outpatient (REF) | payer OTHER, SELFPAY ==
--- OUTSIDE RECORDS SUMMARY | 2024-07-25 08:06 | XMS_ITS ---
Author Organization [facility] Address [address] [address] Care Team Providers Care Pile Driver Engineer Name Role Phone Yolanda An Primary Care Provider UnavailTEAGAN Hensley Unavailable [phone] REASON FOR VISIT 4wk Encounters Encounter Location Date Provider Diagnosis [facility] [address] [address] 04/05/2023 TEAGAN WELLS Plan Of Treatment No Information Progress Notes * Kumar GREGORYDOB:[birth year] (53 yo M)Acc No.[id number]:04/05/2023 Progress Note Patient:?Kumar GREGORY Provider:?Teagan Carnes DPM :1970???Age:52 Y???Sex:Male Antione e:04/05/2023 Phone: Address:[address] [place], [place] [phone] Pcp:Yolanda An Subjective: * Chief Complaints: * ???1. 4wk. * Medical History:? Objective: * Vitals:? Assessment: Plan: * Treatment: * Billing Information: * Visit Code:? * Procedure Codes:? * Electronic signature of LUPE WELLS D.P.M. on 07/25/2024 at 08:06 AM EST Sign off status: Pending * Provider:?Teagan Carnes DPM Date:?04/05 Generated for Jeremi foreman/Angela/Brittsmitting on:?07/25/2024 08:06 AM EST
--- OUTSIDE RECORDS SUMMARY | 2024-07-25 08:07 | XMS_ITS ---
Author Organization [facility] Address [address] [facility] [address] [place] [address] Care Team Providers Care Spot Sprayer Name Role Phone Yolanda An Primary Care Provider UnavailTEAGAN Hensley Unavailable [phone] Allergies Allergen (clinical drug ingredient) Drug/Non Drug Allergy documented on EMR Reaction Allergy Type Onset Date Status erythromycin Erythromycin Unknown Drug Allergy A ctive REASON FOR VISIT Rt foot heel pain Medications Medication SIG (Take, Route, Frequency, Duration) Notes Start Date End Date Status Acyclovir 5 % 1 application every 3 hours Externally Six times a day Not-Taking Albuterol Sulfate 108 (90 Base) MCG/ACT 2 puffs as needed Inhalation every 4 hrs prn Not-Takin g Fluticasone Propionate 50 MCG/ACT 2 sprays in each nostril Nasally Once a day prn Not-Taking PredniSONE (Kwadwo) Not -Taking Claritin 10 MG 1 tablet Orally Once a day prn Active Allopurinol 100 MG 1 tablet Orally Once a day Active Meclizine HCl 25 MG 1 tablet as needed Orally Once a day Not-Taking Indomethacin 50 MG 1 capsule with food or milk Orally Twice a day for 30 day(s) 07/06/2021 Not-Taking Problems Problem Type SNOMED Code ICD Code Onset Dates Problem Status W/U Status Risk Notes Problem [id number] 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) Active confirmed Vital Signs Weight 206.9 lbs 03/08/2023 BMI 33.39 kg/m2 03/08/2023 Heart Rate 72 /min 03/08/2023 Blood pressure systolic 125 mm Hg 03/08/20 23 Blood pressure diastolic 82 mm Hg 023 Temperature 96.8 degrees Fahrenheit 03/08/20 23 Respiratory Rate 16 /min 03/08/2023 Encounters Encounter Location Date Provider Diagnosis [facility] [address] [facility] [address] [place] [address] 03/08/2023 TEAGAN WELLS Achilles tendinitis of right lower extremity M76.61 and Gastrocnemius equinus of right lower extremity M21.861 Assessments Encounter Date Diagnosis (ICD Code) Assessment Notes Treatment Notes Treatment Clinical Notes Section Notes 03/08/2023 Achilles tendinitis of right lower extremity (ICD-10 - M76.61) Patient examined and evaluated today. Past medical history was reviewed. Patient was educated on the etiology of insertional Achilles tendonitis and tendinosis. Discussed conservative treatment options which included RICE therapy, oral anti-inflammatorie s, eccentric calf stretching, physical therapy, shoe modifications, heel lifts, bracing, and immobilization in a tall CAM boot and/or cast for 6 weeks. I stressed the importance of adding RICE therapy with eccentric calf stretching twice daily. Patient was shown the proper way to stretch. I also advised getting a night splint as well and starting NSAIDs. I gave him a handout with information about insertional Achilles tendonitis and the treatments. I would like to see him back in 4 weeks to re evaluate. I encouraged him to call with any questions or concerns. 03/08/2023 Gastrocnemius equinus of right lower extremity (ICD-10 - M21.861) Plan Of Treatment Treatment Notes Assessment Notes Achilles tendinitis of right lower extremity Patient examined and evaluated today. Jd kirby medical history was reviewed. Patient was educated on the etiology of insertional Achilles tendonitis and tendinosis. Discussed conservative treatment options which included RICE therapy, oral anti-inflammatories, eccentric calf stretching, physical therapy, shoe modifications, heel lifts, bracing, and immobilization in a tall CAM boot and/or cast for 6 weeks. I stressed the importance of adding RICE therapy with eccentric calf stretching twice daily. Patient was shown the proper way to stretch. I also advised getting a night splint as well and starting NSAIDs. I gave him a handout with information about insertional Achilles tendonitis and the treatments. I would like to see him back in 4 weeks to re evaluate. I encouraged him to call with any questions or concerns. Next Appt Details Follow Up: 4 Weeks, Reason: Progress Notes * Sherri GREGORY:[birth year] (52 yo M)Acc No.[id number]:03/08/2023 Progress Notes Patient:Kumar Gonzalez Provider:?Teagan Carnes DPJacinta :1970???Age:52 Y???Sex:Male Antione e:03/08/2023 Phone: Address:[address] [place], [place] [phone] Pcp:Yolanda An Subjective: * Chief Complaints: * ???Rt foot heel pain * HPI: ???Constitutional:? Mr. Gregory presents for a new problem visit. He has been having pain in the back of his right heel for a couple of months now. He states the pain can be sharp and aching in nature. At times it causes him to limp around. He finds that the more is his ambulating the more the heel will start to hurt. He has had no injuries ro changes in activity. He has not noticed any swelling, redness, or increase warmth to the area. He does admit to having some issues with his lower back and right sided sciatica in the beginning of summer. This did eventually resolve. He has not noticed any weakness in the right lower extremity. 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 He states he is on his third week. He was also given colchicine for acute flares of gout, but this caused GI issues and he had to stop taking the medication. * ROS:?General/Constitutional:?Denies?Chills.?Denies?Fatigue.?Denies?Fever.?Denies?Headache.?Allergy/Immunology:?Denies?Hives.?Denies?Itching.?Denies?Rash.?Endocrine:?Denies?Excessive sweating.?Denies?Excessive thirst.?Denies?Frequent urination.?Respiratory:?Denies?Cough.?Denies?Shortness of breath,?denies.?Denies?Wheezing.?Cardiovascular:?Denies?Chest pain.?Denies?Claudication.?Denies?Cyanosis.?Gastrointestinal:?Denies?Abdominal pain.?Denies?Constipation.?Denies?Diarrhea.?Musculoskeletal:?Patient complaining of?right heel pain.?Admits?Back problems.?Denies?Joint stiffness.?Denies?Leg cramps.?Neurologic:?Denies?Paralysis.?Denies?Tingling/Numbness.?Denies?Tremor.? * Medical History:? * Surgical History:?urethral s tricture * Hospitalization/Major Diagno stic Procedure:?Denies Past Hospitalization * Family History:?Mother: guevara kirby cancer at 74.?Maternal Grand Father: diabetes mellitus.?Maternal Grand Mother: diabetes mellitus.? 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 * Medications:?TakingAllopurin ol 100 MG Tablet 1 tablet Orally Once a day Claritin 10 MG Tablet 1 tablet Orally Once a day , Notes to Pharmacist: prnTaking Allopurinol 100 MG Tablet 1 tablet Orally Once a day Taking Claritin 10 MG Tablet 1 tablet Orally Once a day , Notes to Pharmacist: prnNot-TakingPredniSONE (Kwadwo) Fluticasone Propionate 50 MCG/ACT Suspension 2 sprays in each nostril Nasally Once a day , Notes to Pharmacist: prnAlbuterol Sulfate 108 (90 Base) MCG/ACT Aerosol Powder Breath Activated 2 puffs as needed Inhalation every 4 hrs , Notes to Pharmacist: prnAcyclovir 5 % Ointment 1 application every 3 hours Externally Six times a day Indomethacin 50 MG Capsule 1 capsule with food or milk Orally Twice a day Meclizine HCl 25 MG Tablet 1 tablet as needed Orally Once a day Medication List reviewed and reconciled with the patientNot-Taking PredniSONE (Kwadwo) Not-Taking Fluticasone Propionate 50 MCG/ACT Suspension 2 sprays in each nostril Nasally Once a day , Notes to Pharmacist: prnNot-Taking Albuterol Sulfate 108 (90 Base) MCG/ACT Aerosol Powder Breath Activated 2 puffs as needed Inhalation every 4 hrs , Notes to Pharmacist: prnNot-Taking Acyclovir 5 % Ointment 1 application every 3 hours Externally Six times a day Not-Taking Indomethacin 50 MG Capsule 1 capsule with food or milk Orally Twice a day Not-Taking Meclizine HCl 25 MG Tablet 1 tablet as needed Orally Once a day Medication List reviewed and reconciled with the patient * Allergies:?Erythromycinno[Manohar moran Verified] Objective: * Vitals:?Wt:206.9lbs, BMI:33. 39Index, HR:72/min, BP:125/82mm Hg, Temp:96.8F, RR:16/min, Ht-cm: 167.64, Wt-k.85 kg. * Examination: ???General Examination: ???This is a middle aged male. Alert and oriented today and in no acute distress. Patient comes in ambulating in sneakers without using any assistive devices. Breathing is regular and unlabored while sitting. Affect is pleasant and cooperative. No unusual anxiety or depression noted. Hearing intact to spoken word. No evidence of visual impairment that would impact self care or ambulation. Patient has palpable dorsalis pedis and posterior tibial pulse bilaterally. No varicosities visualized. Capillary refill is less than 3 seconds to all digits bilaterally. Light touch sensation is symmetrical to all lower extremity dermatomes. Babinski is downgoing. Skin has normal turgor and texture. There are no open wounds, rashes, or lesions noted. There is tenderness with pressure to the right Achilles insertion site. There is palpable hypertrophy at this area. No edema, erythema or increase in warmth. There is no pain at the right Achilles midsubstance or plantar right heel. There is significant gastrocnemius equinus present. There is an adductovarus deformity of the right 4th and 5th toes. 5/5 strength for anterior, posterior, and lateral lower extremity muscle groups on the left and right. No muscle atrophy noted. Assessment: * Assessment: 1.?Achilles tendinitis of ri ght lower extremity - M76.61 (Primary)?2.?Gastrocnemius equinus of right lower extremity - M21.861? Plan: * Treatment: * Procedure Codes:? * Follow Up:?4 Weeks * Billing Information: * Visit Code:? 96919 Office Visit, Est Pt., Level 3. * Procedure Codes:? * Sign off status: Completed true * Provider:Ai Carnes DPM Date:?03/08 Generated for Jeremi foreman/Angela/Vincenzo on:?07/25/2024 08:07 AM EST History and Physical Notes * Examination Category Sub-Category Detail Notes Category Not es General Examination This is a middle aged male. Alert and oriented today and in no acute distress. Patient comes in ambulating in sneakers without using any assistive devices. Breathing is regular and unlabored while sitting. Affect is pleasant and cooperative. No unusual anxiety or depression noted. Hearing intact to spoken word. No evidence of visual impairment that would impact self care or ambulation. Patient has palpable dorsalis pedis and posterior tibial pulse bilaterally. No varicosities visualized. Capillary refill is less than 3 seconds to all digits bilaterally. Light touch sensation is symmetrical to all lower extremity dermatomes. Babinski is downgoing. Skin has normal turgor and texture. There are no open wounds, rashes, or lesions noted. There is tenderness with pressure to the right Achilles insertion site. There is palpable hypertrophy at this area. No edema, erythema or increase in warmth. There is no pain at the right Achilles midsubstance or plantar right heel. There is significant gastrocnemius equinus present. There is an adductovarus deformity of the right 4th and 5th toes. 5/5 strength for anterior, posterior, and lateral lower extremity muscle groups on the left and right. No muscle atrophy noted.
--- OUTSIDE RECORDS SUMMARY | 2024-07-25 08:07 | XMS_ITS | Encounter Summary ---
Author Organization [facility] Address [address] [place] [address] Care Team Providers Care Cord Tire Builder Name Role Phone Yolanda An MD Primary Care Provider [phone] Reason for Visit * Reason Onset Date Comments TB testing 07/20/2024 Encounter Details Date Type Department Care Team (Late st Contact Info) Description 07/20/[address] [facility] [address], [place] [phone] Yolanda An MD [address] [place] [address] TB testing Social History Tobacco Use Types Packs/Day Years Used Date Smoking Tobacco: Never Smokeless Tobacco: Never Alcohol Use Standard Drinks/Week Comments Yes 0 (1 standard drink = 0.6 oz pur e alcohol) Sex and Gender Information Value Date Recorded Sex Assigned at Not on file Legal Sex Male 10:05 PM EST Gender Identity Not on file Sexual Orientation Not on file documented as of this encounter Progress Notes * Zonia Jones RN - 07/20/2024 11:31 AM EST Called and spoke with pts she is the one who called. Appt for 08/04 offered tomorrow and soonerneeded afternoon appt * Yolanda An MD - 07/20/2024 11:20 AM EST He has not been seen >1 year; is on medications; needs to be seen * Fartun Ruiz - 07/20/2024 10:15 AM EST Patient is calling today looking to get and appt for TB testing. Please advise documented in this encounter Plan of Treatment Upcoming Encounters Date Type Department Care Team (Late st Contact Info) Description 08/04/2024 2:15 PM EST Office Visit Adult Medicine [facility] [address] [place] [phone] Selena León PA [address], [place] documented as of this encounter Visit Diagnoses Not on filedocumented in this encounter Care Teams Cord Tire Builder Relationship Specialty Start Date End Date Yolanda An MD [address] [place] [address] PCP - General 12/08/1994 documented as of this encounter
--- OUTSIDE RECORDS SUMMARY | 2024-07-25 08:07 | XMS_ITS ---
Author Organization [facility] Address [address] [address] Care Team Providers Care Information Technology Intern Name Role Phone Yolanda An Primary Care Provider UnavailLADI Hensley Unavailable [phone] REASON FOR VISIT FYI Encounters Encounter Location Date Provider Diagnosis [facility] [address] [address] 04/04/2023 LADI WELLS Plan Of Treatment No Information Progress Notes * Kumar GREGORYDOB:[birth year] (52 yo M)Acc No.[id number]:04/04/2023 Patient:?Kumar GREGORY :1970???Age:52 Y???Sex:Male Phone: Address:[address] [place] [phone] * true * Date:? Generated for Dagobertoi kellen/Angela/eTransmitting on:?07/25/2024 08:06 AM EST
--- OUTSIDE RECORDS SUMMARY | 2024-07-25 08:07 | XMS_ITS | Patient Health Record ---
Author Organization [facility] Address [address] [facility] [address] [place] [address] Care Team Providers Care Space Controller Name Role Phone Yolanda An Primary Care Provider UnavailLADI Hensley Unavailable [phone] Allergies Allergen (clinical drug ingredient) Drug/Non Drug Allergy documented on EMR Reaction Allergy Type Onset Date Status erythromycin Erythromycin Unknown Drug Allergy A ctive Reason For Referral No Information Medications Medication SIG (Take, Route, Frequency, Duration) [...] Problem Status W/U Status Risk Notes Problem [id number] Acute gout of right foot, unspecified cause (M10.9) Active confirmed Problem 4486225 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) Active confirmed Problem 290488149 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) Active confirmed Problem 113452785 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) Active confirmed Plan Of Treatment Pending Test Test Name Order Date X ray : Foot, right 3v 07/06/2021 Insurance Providers Payer Name Payer Address Payer Phone Subscriber Number Group Number Insured Name Patient Relationship to Insured Coverage Start Date Coverage End Date [facility] [address] [place] [id number] Kumar Darling Self - patient is the insured Medical (General) History Medical History History ICD Code history of cold sores obesity asthma diastasis recti hyperlipidemia allergic rhinits nephrolithiasis GERD urethral stricture IMO Jun 2015 benign paroxysmal positional vertigo Gout Surgical History Surgery Date(Month/Year) urethral stricture
--- OUTSIDE RECORDS SUMMARY | 2024-07-25 08:07 | XMS_ITS | Clinical Summary ---
Author Organization [facility] Address [address] [place] [address] Care Team Providers Care Mold Designer Name Role Phone Yolanda An MD Primary Care Provider Allergies Active Allergy Reactions Criticality Noted Date Comments Erythromycin 10/12/2005 Other Reaction(s): Rash/Dermatitis Medications allopurinoL (ZYLOPRIM) 100 mg tablet Take 1 tablet (100 mg total) by mouth 2 (two) times a day. Active albuterol HFA (PROAIR HFA ; PROVENTIL HFA ; VENTOLIN HFA) 90 mcg/actuation inhaler Inhale 2 Puffs into the lungs every 4 hours as needed for Cough, Wheezing or Shortness of Breath for up to 30 days. 2 Active fluticasone propionate (FLONASE) 50 mcg/actuation nasal spray 2 Sprays by Each Nare route daily. Use in each nostril as directed 5 Active loratadine (Claritin) 10 mg tablet 1 po qd Active Active Problems Problem Noted Date Diagnosed Date Gout 06/19/2023 Obesity (BMI 30.0-34.9) 08/09/2018 Bunion 09/11/2017 Overview (06/05/2024): bilateral Asthma 08/04/2016 Diastasis recti 03/02/2013 Hyperlipidemia 05/08/2010 Allergic rhinitis 10/12/2005 Esophageal reflux 10/12/2005 Nephrolithiasis 10/12/2005 Urethral stricture 10/12/2005 Overview (06/05/2024): IMO update Encounters Date Type Department Care Team Description 07/20/2024 Telephone Adult Medicine [address] [phone] Yolanda An MD TB testing from Last 3 Months Immunizations Name Administration Dates Next Due Hepatitis B (Rwqeixz-V-Ntgvd , Recombivax HB-Adult) 19yo and older 09/20/2003,04/21/2003,03/22/2003 Influenza Quadravalent, MDCK , 0.5ml, preservative free (Flucelvax) 6mo and older 06/19/2023,06/01/2019 Influenza Quadravalent, MDCK , 0.5ml, with preservative (Flucelvax) 6mo and older 03/30/2018 Influenza trivalent, with pr eservative (Fluzone; Afluria) 6mo and older 03/27/2020,02/28/2014,03/16/2012,04/01,03/30/2010,03/10/2010 Influenza, Unspecified 06/05/2021,02/28/2014 Measles 08/13/2017 Mumps 08/13/2017 Pneumococcal polysaccharide 23 valent (Pneumovax 23) 2yo and older 07/30/2018 Rubella 08/13/2017 Tdap Tetanus diptheria acell ular pertussis (Boostrix; Adacel) 7yo and older 05/30/2020,05/08/2010 Varicella live (Varivax) 12m o and older 08/13/2017 Surgical History Surgery Date Site/Laterality Comments OTHER SURGICAL HISTORY PROCEDURE: [place] 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 1ST OTHER SURGICAL HISTORY PROCEDURE: ---- OTHER ----; COMMENT: kidney stone surgery Medical History Medical History Date Comments Allergic rhinitis, cause unspecified DX:Allergic rhinitis, cause unspecified Calculus of kidney DX:Calculus o f kidney Esophageal reflux DX:Esophageal reflux Urethral stricture unspecified D X:Urethral stricture unspecified Hyperlipidemia 05/08/2010 DX:Hyperlipidemi a Bunion 09/11/2017 DX:Bunion; COMME NT: bilateral Gout 06/19/2023 DX:Gout Family History Medical History Relation Name Comments Other: alive and well Father Diabetes Maternal Grandfather Diabetes Maternal Grandmother Breast cancer Mother at 74 Relation Name Status Comments Father Maternal Grandfather Maternal Grandmother Mother Social History Tobacco Use Types Packs/Day Years Used Date Smoking Tobacco: Never Smokeless Tobacco: Never Alcohol Use Standard Drinks/Week Comments Yes 0 (1 standard drink = 0.6 oz pur e alcohol) Sex and Gender Information Value Date Recorded Sex Assigned at Not on file Legal Sex Male 10:05 PM EST Gender Identity Not on file Sexual Orientation Not on file Obstetrics History Last Filed Vital Signs Vital Sign Reading Time Taken Comments Blood Pressure 132/79 06/19/2023 3:51 PM EST A Pulse 84 06/19/2023 3:22 PM EST Temperature - - Respiratory Rate - - Oxygen Saturation - - Inhaled Oxygen Concentration - - Weight 93.9 kg (207 lb) 06/19/2023 3:22 PM EST Height 167.6 cm (5' 6 ) 06/19/2023 3:22 PM EST Body Mass Index 33.41 06/19/2023 3:22 PM EST Plan of Treatment Upcoming Encounters Date Type Department Care Team (Late st Contact Info) Description 08/04/2024 2:15 PM EST Office Visit Adult Medicine [facility] [address] [place] [address] Selena León PA [address] [place] [address] Health Maintenance Due Date Last Done Comments Pneumococcal Vaccine: 50+ Years (2 of 2 - PCV) 07/30/2019 07/30/2018 Pneumococcal Vaccine: Pediatrics (0 to 5 Years) and At-Risk Patients (6 to 64 Years) (2 of 2 - PCV) 07/30/2019 07/30/2018 Zoster Vaccines (1 of 2) 11/11/2019 08/13/2017 Depression Screening 05/19/2022 HIV Screening 05/19/2022 Hepatitis C Screening 05/19/2022 Social Influencers of Health Screening 05/19/2022 COVID-19 Vaccine ( season) 2024 09/26/2020, 09/05/2020 Influenza Vaccine (#1) 2024 4, 06/05/2021, 03/27/2020, Additional history exists Colorectal Cancer Screening: Colonoscopy 07/08/2025 07/08/2020, 07/08/2020 Cholesterol Screening (Lipid Panel) 06/30/2026 06/30/2021 DTaP,Tdap,and Td Vaccines (3 - Td or Tdap) 05/30/2030 05/30/2020, 05/08/2010 Hepatitis B Vaccines Completed 09/20/2003, 04/21/2003, 03/22/2003 Varicella Vaccines Aged Out 08/13/2017 No longer eligible based on patient's age to complete this topic HIB Vaccines Aged Out No longer eligi ble based on patient's age to complete this topic HPV Vaccines Aged Out No longer eligi ble based on patient's age to complete this topic Hepatitis A Vaccines Aged Out No long er eligible based on patient's age to complete this topic IPV Vaccines Aged Out No longer eligi ble based on patient's age to complete this topic MMR Vaccines Aged Out No longer eligi ble based on patient's age to complete this topic Meningococcal ACWY Vaccine Aged Out N o longer eligible based on patient's age to complete this topic Meningococcal B Vacine Aged Out No lo nger eligible based on patient's age to complete this topic RSV Immunization Patients Under 20 months Aged Out No longer eligible based on patient's age to complete this topic Procedures Procedure Name Priority Date/Time Associated Diagnosis Comments LIPID PANEL Routine 06/30/2021 COLONOSCOPY Routine 07/08/2020 from Last 3 Months or Most Recently Relevant to Health Maintenance Results * (ABNORMAL) Lipid panel (06/30/2021) LDL/HDL Ratio 6(A) 0 - 4 Triglycerides 339(A) 0 - 150 mg/dL Cholesterol 222(A) 0 - 200 mg/dL HDL 38(A) >=40 mg/dL LDL Cholesterol 117(A) 0 - 100 mg/dL Blood Venous blood specimen / Unknown us Historical Provider LAB BLOOD ORDERABLES Abena l Result * Colonoscopy (07/08/2020) Colonoscopy No Interpretation , Abstracted Anatomical Region Laterality Modality Other us Historical Provider HEALTH MAINTENANCE Final Result from Last 3 Months or Most Recently Relevant to Health Maintenance Insurance [facility] Care Teams Mold Designer Relationship Specialty Start Date End Date Yolanda An MD [address] [place] [address] PCP - General 12/08/1994
== END 2024-07-25 08:05 | disposition home or self-care (01) ==
LOC: HO.LAB 08:04
PROVIDERS: PCP Internal Medicine; Visit Provider Student in an Organized Health Care Education/Training Program
DX: Z13.89 Encounter for screening for other disorder (principal)

== ENCOUNTER 2024-07-30 07:10 | Outpatient (REF) | payer OTHER, SELFPAY ==
--- OUTSIDE RECORDS SUMMARY | 2024-07-30 07:12 | XMS_ITS ---
Author Organization [facility] Address [address] [address] Care Team Providers Care Scrub Wheel Operator Name Role Phone Yolanda An Primary Care Provider UnavailLADI Hensley Unavailable [phone] REASON FOR VISIT FYI Encounters Encounter Location Date Provider Diagnosis [facility] [address] [address] 04/04/2023 LADI WELLS Plan Of Treatment No Information Progress Notes * Kumar GREGORYDOB:[birth year] (52 yo M)Acc No.[id number]:04/04/2023 Patient:?Kumar GREGORY :1970???Age:52 Y???Sex:Male Phone: Address:[address] [place] [phone] * true * Date:? Generated for Jeremi foreman/Angela/eTransmitting on:?07/30/2024 07:11 AM EST
--- OUTSIDE RECORDS SUMMARY | 2024-07-30 07:12 | XMS_ITS | Encounter Summary ---
Author Organization [facility] Address [address] [place] [address] Care Team Providers Care Studio Producer Name Role Phone Yolanda An MD Primary Care Provider [phone] Reason for Visit * Reason Onset Date Comments TB testing 07/20/2024 Encounter Details Date Type Department Care Team (Late st Contact Info) Description 07/20/2024 Telephone Adult Medicine [facility] [address] [place], [place] [phone] Yolanda An MD [address] [place] [address] TB testing Social History Tobacco Use Types [...] 2:15 PM EST Office Visit Adult Medicine [facility] [address] [place] [phone] Selena León PA [address] [place], [place] documented as of this encounter Visit Diagnoses Not on filedocumented in this encounter Care Teams Studio Producer Relationship Specialty Start Date End Date Yolanda An MD [address] [place] [address] PCP - General 12/08/1994 documented as of this encounter
--- OUTSIDE RECORDS SUMMARY | 2024-07-30 07:12 | XMS_ITS | Patient Health Record ---
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) Active confirmed Problem 187655820 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) Active confirmed Plan Of Treatment Pending Test Test Name Order Date X ray : Foot, right 3v 07/06/2021 Insurance Providers Payer Name Payer Address Payer Phone Subscriber Number Group Number Insured Name Patient Relationship to Insured Coverage Start Date Coverage End Date [facility] [address] [place] [id number] [phone] [id number] Kumar Darling Self - patient is the insured Medical (General) History Medical History History ICD Code history of cold sores obesity asthma diastasis recti hyperlipidemia allergic rhinits nephrolithiasis GERD urethral stricture IMO Jun 2015 benign paroxysmal positional vertigo Gout Surgical History Surgery Date(Month/Year) urethral stricture
--- OUTSIDE RECORDS SUMMARY | 2024-07-30 07:12 | XMS_ITS | Clinical Summary ---
Author Organization [facility] Address [address] [place] [address] Care Team Providers Care Dynamics Ax Solution Architect Name Role Phone Yolanda An MD Primary Care Provider [phone] Allergies Active Allergy Reactions Criticality Noted Date [...] Care Team Description 07/20/2024 Telephone Adult Medicine [address] [phone] Yolanda An MD TB testing from Last 3 Months Immunizations Name Administration Dates Next Due Hepatitis B (Husfsts-G-Kaspk , Recombivax HB-Adult) 19yo and older 09/20/2003,04/21/2003,03/22/2003 [...] Date Site/Laterality Comments OTHER SURGICAL HISTORY PROCEDURE: [place] 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 1ST OTHER [...] 2:15 PM EST Office Visit Adult Medicine [facility] [address] [place] [address] Selena León PA [address] [place] [address] Health Maintenance Due Date Last Done Comments [...] Most Recently Relevant to Health Maintenance Insurance [facility] Care Teams Dynamics Ax Solution Architect Relationship Specialty Start Date End Date Yolanda An MD [address] [place] [address] PCP - General 12/08/1994
--- OUTSIDE RECORDS SUMMARY | 2024-07-30 07:12 | XMS_ITS ---
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) Active confirmed Vital Signs Weight 206.9 lbs 03/08/2023 BMI 33.39 kg/m2 03/08/2023 Heart Rate 72 /min 03/08/2023 Blood pressure systolic 125 mm Hg 03/08/20 23 Blood pressure diastolic 82 mm Hg 023 Temperature 96.8 degrees Fahrenheit 03/08/20 23 Respiratory Rate 16 /min 03/08/2023 Encounters Encounter Location Date Provider Diagnosis [facility] [address] [facility] [address] [place] [address] 03/08/2023 TEAGAN WELLS Achilles tendinitis of right [...] Notes * Sherri GREGORY:[birth year] (52 yo M)Acc No.[id number]:03/08/2023 Progress Notes Patient:Kumar Gonzalez Provider:?Teagan Carnes DPJacinta :1970???Age:52 Y???Sex:Male Antione e:03/08/2023 Phone: Address:[address] [place], [place] [phone] Pcp:Yolanda An Subjective: * Chief Complaints: * [...] 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 * Medications:?TakingAllopurin ol 100 MG Tablet 1 [...] Weeks * Billing Information: * Visit Code:? 25005 Office Visit, Est Pt., Level 3. * Procedure Codes:? * Sign off status: Completed true * Provider:Ai Carnes DPM Date:?03/08 Generated for Jeremi foreman/Angela/Vincenzo on:?07/30/2024 07:11 AM EST History and Physical Notes * [...]
[2024-08-02 15:24] LABS: TS Negative Control Passed; TS Panel A 1; TS Panel B 2; TS Positive Control Passed; TSpotTB Negative (Negative)
== END 2024-07-30 07:11 | disposition home or self-care (01) ==
LOC: HO.LAB 07:10
PROVIDERS: PCP Internal Medicine; Visit Provider Student in an Organized Health Care Education/Training Program
DX: Z20.1 Contact with and (suspected) exposure to tuberculosis (principal)
CPT/HCPCS: 36415; 86481

== ENCOUNTER 2024-11-19 15:48 | Outpatient (REF) | payer OTHER, SELFPAY ==
[2024-11-19 16:06] LABS: MANUAL DIFF FLAG NO
[2024-11-19 16:23] LABS: Basophils Absolute Auto 0.1 X10*3/uL (0.0-0.2); Basophils Percent Auto 0.9 % (0-2); Eosinophils Absolute Auto 0.1 X10*3/uL (0.0-0.4); Eosinophils Percent Auto 2.2 % (0-4); Hematocrit 42.8 % (42.0-52.0); Hemoglobin 15.2 g/dl (14.0-18.0); Imm Gran Abs Auto 0.01 X10*3/uL (0.00-0.03); Imm Gran Pct Auto 0.2 % (0.0-0.4); Lymphocytes Absolute Auto 2.6 X10*3/uL (1.2-4.9); Lymphocytes Percent Auto 44.5 % (20-40); Mean Corpuscular HGB Conc 35.5 g/dl (31.0-36.0); Mean Corpuscular Hemoglobin 32.4 pg (27.0-33.0); Mean Corpuscular Volume 91.3 fL (80.0-98.0); Mean Platelet Volume 9.2 fL (9.4-12.4); Monocytes Absolute Auto 0.5 X10*3/uL (0.1-1.2); Monocytes Percent Auto 8.4 % (2-11); Neutrophils Absolute Auto 2.6 x10*3/uL (2.0-8.3); Neutrophils Percent Auto 43.8 % (45-73); Platelet Count 277 X10*3/uL (160-400); Red Blood Count 4.69 X10*6/uL (4.60-5.80); Red Cell Distribution Width 12.6 % (11.0-16.0); White Blood Count 5.8 X10*3/uL (4.8-10.8)
[2024-11-19 16:48] LABS: Alanine Aminotransferase 32 U/L (0-40); Alkaline Phosphatase 75 U/L (39-117); Anion Gap 10 (12-20); Aspartate Amino Transferase 26 U/L (5-37); Bilirubin Total 0.3 mg/dL (0.0-1.0); Blood Urea Nitrogen 17 mg/dL (9-16); C Reactive Protein < 0.10 mg/dL (< or = 0.50); Calcium 8.4 mg/dL (8.4-10.2); Carbon Dioxide 29 mmol/L (22-29); Chloride 106 mmol/L (96-108); Estimated Glomerular Filt Rate > 60; Glucose Random 104 mg/dL (60-115); Potassium 4.1 mmol/L (3.3-5.1); Sodium 141 mmol/L (135-145); Total Protein 6.7 g/dL (6.5-8.0)
[2024-11-19 17:00] LABS: Uric Acid 4.9 mg/dL (3.4-7.0)
[2024-11-19 17:12] LABS: Erythrocyte Sedimentation Rate 5 MM/HR (0-15)
--- OUTSIDE RECORDS SUMMARY | 2024-11-19 18:08 | XMS_ITS | Clinical Summary ---
Author Organization [facility] Address [address] [place] [phone] Phone Care Team Providers Care Wiring Mechanic Name Role Phone Yolanda An MD Primary Care Provider Allergies Active Allergy Reactions Criticality Noted Date Comments Erythromycin 10/12/2005 Other Reaction(s): Rash/Dermatitis Milk 08/04/2024 Medications allopurinoL (ZYLOPRIM) 100 mg tablet Take 3 tablets (300 mg total) by mouth 2 (two) times [...] Encounters Date Type Department Care Team Description 09/11/2024 7:30 AM EDT Ancillary Procedure [facility] [address] [place] [address] Chest pain, unspecified type from Last 3 Months Immunizations Name Administration Dates Next Due Hepatitis B (Xpgrwks-[id number]-Uvmqi , Recombivax HB-Adult) 19yo and older 09/20/2003,04/21/2003,03/22/2003 [...] Date Site/Laterality Comments OTHER SURGICAL HISTORY PROCEDURE: [place] 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 1ST OTHER [...] Maternal Grandmother Breast cancer Mother at 74 Alzheimer's disease Paternal Grandmother Relation Name Status Comments Father Alive Maternal Grandfather Maternal Grandmother Mother Paternal Grandfather Paternal Grandmother Sister x 1 Alive Social History Tobacco Use Types Packs/Day Years Used Date Smoking Tobacco: Never Smokeless Tobacco: Never Tobacco Cessation:Counseling Given: Not Answered Alcohol Use Standard Drinks/Week Comments Yes 0 (1 standard drink = 0.6 oz pur e alcohol) occ Sex and Gender Information Value Date Recorded Sex Assigned at Not on file Legal Sex Male 10:05 PM EST Gender Identity Not on file Sexual Orientation Not on file Obstetrics History Last Filed Vital Signs Vital Sign Reading Time Taken Comments Blood Pressure 128/70 09/11/2024 7:54 AM EDT Pulse 77 08/04/2024 2:19 PM EST Temperature 36.3 ??C (97.4 ??F) 08/04/2024 2:19 PM ES T Respiratory Rate 14 08/04/2024 2:19 PM EST Oxygen Saturation 95% 08/04/2024 2:19 PM EST Inhaled Oxygen Concentration - - Weight 92.5 kg (204 lb) 09/11/2024 7:39 AM EDT Height 167.6 cm (5' 6 ) 08/04/2024 2:19 PM EST Body Mass Index 32.93 08/04/2024 2:19 PM EST Plan of Treatment Upcoming Encounters Date Type Department Care Team (Late st Contact Info) Description 04/02/2025 9:00 AM EDT Office Visit Adult Medicine [address] [phone] Yolanda An MD [address] [place] [phone] Health Maintenance Due Date Last Done Comments [...] Influencers of Health Screening 05/19/2022 COVID-19 Vaccine (3 - season) 2024 09/26/2020, 09/05/2020 Influenza Vaccine (Season Ended) 2025 06/19/2023, 06/05/2021, 03/27/2020, Additional history exists Colorectal Cancer Screening: Colonoscopy 07/08/2025 07/08/2020, 07/08/2020 Cholesterol Screening (Lipid Panel) 09/11/2029 09/11/2024, 06/30/2021 DTaP,Tdap,and Td Vaccines (3 - Td [...] age to complete this topic Meningococcal B Vaccine Aged Out No l onger eligible based on patient's age to complete this topic RSV Immunization Patients Under 20 months Aged Out No longer eligible based on patient's age to complete this topic Procedures Procedure Name Priority Date/Time Associated Diagnosis Comments INTERFERON GAMMA INTERPRETATION Routine 09/11/2024 8:22 AM EDT Screening-pulmonary TB INTERFERON GAMMA ANTIGEN 2 Routine 09/11/2024 8:22 AM EDT Screening-pulmonary TB INTERFERON GAMMA ANTIGEN 1 Routine 09/11/2024 8:22 AM EDT Screening-pulmonary TB INTERFERON GAMMA MITOGEN Routine 09/11/2024 8:22 AM EDT Screening-pulmonary TB INTERFERON GAMMA NIL Routine 09/11/2024 8:22 AM EDT Screening-pulmonary TB CBC WITH AUTO DIFFERENTIAL Routine 09/11/2024 8:22 AM EDT Chest pain, unspecified type INTERFERON GAMMA FOR TB, QUALITATIVE Routine 09/11/2024 8:22 AM EDT Screening-pulmonary TB CBC AND DIFFERENTIAL Routine 09/11/2024 8:22 AM EDT Chest pain, unspecified type COMPREHENSIVE METABOLIC PANEL Routine 09/11/2024 8:22 AM EDT Chest pain, unspecified type LIPID PANEL WITH REFLEX TO DIRECT LDL Routine 09/11/2024 8:22 AM EDT Chest pain, unspecified type Lipid screening PROSTATE SPECIFIC ANTIGEN SCREEN Routine 09/11/2024 8:22 AM EDT Chest pain, unspecified type Prostate cancer screening STRESS TEST ONLY EXERCISE Routine 09/11/2024 8:19 AM EDT Chest pain, unspecified type HM COLONOSCOPY Routine 07/08/2020 from Last 3 Months or Most Recently Relevant to Health Maintenance Results * Prostate specific antigen screen (09/11/2024 8:22 AM EDT) PSA 0.27 0.00 - 4.00 ng/mL LAB CHEMISTRY METHOD 09/11/2024 11:21 AM EDT [facility] ([facility]) [facility] Blood Venous blood specimen / Unknown Venipuncture / Unknown 09/11/2024 8:22 AM EDT 09/11/2024 9:16 AM EDT Narrative [facility] - 09/11/2024 11:21 AM EDT The Siemens Advia Centaur Chemiluminescent Immunoassay is used. Results obtained with different assay methods or kits cannot be used interchangeably. Results cannot be interpreted as absolute evidence of the presence or absence of malignant disease. us Selena SAINI LAB BLOOD ORDERABLES Final Re sult Performing Organization Address [facility]/ZIP Co de Phone Number [facility] [address] [place] [address], [place] [phone] * Interferon gamma interpretation (09/11/2024 8:22 AM EDT) [facility] Quantiferon Plus Interpretation Negative Negative LAB CHEMISTRY METHOD 09/12/2024 11:51 AM EDT [facility] Blood Venous blood specimen / Unknown Venipuncture / Unknown 09/11/2024 8:22 AM EDT 09/11/2024 9:15 AM EDT us Selena SAINI LAB BLOOD ORDERABLES Final Re sult Performing Organization Address [facility]/ZIP Co de Phone Number [facility] [address] [place] [address], [place] [phone] * Interferon gamma antigen 2 (09/11/2024 8:22 AM EDT) Blood Venous blood specimen / Unknown Venipuncture / Unknown 09/11/2024 8:22 AM EDT 09/11/2024 9:15 AM EDT us Selena SAINI LAB BLOOD ORDERABLES Final Re sult Performing Organization Address City/[facility]/ZIP Co de Phone Number [facility] [address] [place] [address], [place] [phone] * Inteferon gamma antigen 1 (09/11/2024 8:22 AM EDT) Blood Venous blood specimen / Unknown Venipuncture / Unknown 09/11/2024 8:22 AM EDT 09/11/2024 9:15 AM EDT us Selena SAINI LAB BLOOD ORDERABLES Final Re sult Performing Organization Address [facility]/ZIP Co de Phone Number [facility] [address] [place] [address], [place] [phone] * Interferon gamma mitogen (09/11/2024 8:22 AM EDT) Blood Venous blood specimen / Unknown Venipuncture / Unknown 09/11/2024 8:22 AM EDT 09/11/2024 9:15 AM EDT us Selena SAINI LAB BLOOD ORDERABLES Final Re sult Performing Organization Address [facility] Co de Phone Number [facility] [address] [place] [address], [place] [phone] * Interferon gamma NIL (09/11/2024 8:22 AM EDT) Blood Venous blood specimen / Unknown Venipuncture / Unknown 09/11/2024 8:22 AM EDT 09/11/2024 9:15 AM EDT us Selena SAINI LAB BLOOD ORDERABLES Final Re sult Performing Organization Address [facility] de Phone Number [facility] [address] [place] [address], [place] [phone] * (ABNORMAL) Lipid panel with reflex to direct LDL (09/11/2024 8:22 AM EDT) Cholesterol 197 0 - 200 mg/dL LAB CHEMISTRY METHOD 09/11/2024 10:11 AM EDT [facility] Triglycerides 203(H) 0 - 150 mg/dL LAB CHEMISTRY METHOD 09/11/2024 10:11 AM EDT [facility] HDL 39(L) >=40 mg/dL LAB CHEMISTRY METHOD 09/11/2024 10:11 AM EDT [facility] LDL Calculated 117(H) 0 - 100 mg/dL LAB CHEMISTRY METHOD 09/11/2024 10:11 AM EDT [facility] VLDL Cholesterol Brendan 40.6 mg/dL LAB CHEMISTRY METHOD 09/11/2024 10:11 AM EDT [facility] Non HDL Chol. (LDL+VLDL) 158(H) <145 mg/dL LAB CHEMISTRY METHOD 09/11/2024 10:11 AM EDT [facility] Chol/HDL Ratio 5.1(H) 0.0 - 4.4 LAB CHEMISTRY METHOD 09/11/2024 10:11 AM EDT [facility] Blood Venous blood specimen / Unknown Venipuncture / Unknown 09/11/2024 8:22 AM EDT 09/11/2024 9:16 AM EDT us Selena SAINI LAB BLOOD ORDERABLES Final Re sult [facility] [address] [place] [address], * CBC auto differential (09/11/2024 8:22 AM EDT) WBC 5.0 4.8 - 10.8 K/mcL LAB HEMETOLOGY METHOD 09/11/2024 9:30 AM EDT [facility] RBC 5.10 4.50 - 5.50 M/mcL LAB HEMETOLOGY METHOD 09/11/2024 9:30 AM EDT [facility] Hemoglobin 16.3 13.5 - 17.5 g/dL LAB HEMETOLOGY METHOD 09/11/2024 9:30 AM EDT [facility] Hematocrit 47.8 42.0 - 54.0 % LAB HEMETOLOGY METHOD 09/11/2024 9:30 AM [facility] MCV 93.7 79.0 - 98.0 FL LAB HEMETOLOGY METHOD 09/11/2024 9:30 AM EDT [facility] MCH 32.0 27.0 - 32.0 pcg LAB HEMETOLOGY METHOD 09/11/2024 9:30 AM [facility] MCHC 34.1 32.0 - 37.0 g/dL LAB HEMETOLOGY METHOD 09/11/2024 9:30 AM [facility] RDW 12.2 11.0 - 15.0 % LAB HEMETOLOGY METHOD 09/11/2024 9:30 AM [facility] Platelets 301 130 - 400 K/mcL LAB HEMETOLOGY METHOD 09/11/2024 9:30 AM [facility] MPV 9.7 7.0 - 11.0 FL LAB HEMETOLOGY METHOD 09/11/2024 9:30 AM [facility] NRBC 0.0 <1.0 % LAB HEMETOLOGY METHOD 09/11/2024 9:30 AM [facility] NRBC Absolute 0.00 <0.10 K/mcL LAB HEMETOLOGY METHOD 09/11/2024 9:30 AM [facility] Neutrophils Relative 44.2 % LAB HEMETOLOGY METHOD 09/11/2024 9:30 AM [facility] Lymphocytes Relative 45.4 % LAB HEMETOLOGY METHOD 09/11/2024 9:30 AM [facility] Monocytes Relative 6.6 % LAB HEMETOLOGY METHOD 09/11/2024 9:30 AM [facility] Eosinophils Relative 2.6 % LAB HEMETOLOGY METHOD 09/11/2024 9:30 AM [facility] Basophils Relative 1.0 % LAB HEMETOLOGY METHOD 09/11/2024 9:30 AM [facility] Immature Granulocytes Relative 0.2 % LAB HEMETOLOGY METHOD 09/11/2024 9:30 AM [facility] Neutrophils Absolute 2.22 1.50 - 7.00 K/mcL LAB HEMETOLOGY METHOD 09/11/2024 9:30 AM EDT [facility] Lymphocytes Absolute 2.28 1.00 - 5.00 K/mcL LAB HEMETOLOGY METHOD 09/11/2024 9:30 AM EDT [facility] Monocytes Absolute 0.33 0.20 - 1.00 K/[facility] LAB HEMETOLOGY METHOD 09/11/2024 9:30 AM EDT [facility] Eosinophils Absolute 0.13 0.00 - 0.50 K/[facility] HEMETOLOGY METHOD 09/11/2024 9:30 AM EDT [facility] Basophils Absolute 0.05 0.00 - 0.20 K/[facility] HEMETOLOGY METHOD 09/11[facility]2024 [facility] Immature Granulocytes Absolute 0.01 0.00 - 0.03 K/[facility] LAB HEMETOLOGY METHOD 09/11/2024 9:30 AM T [facility] Blood Venous blood specimen / Unknown Venipuncture / Unknown 09/11/2024 8:22 AM EDT 09/11/2024 9:14 AM EDT us Selena SAINI LAB BLOOD ORDERABLES Final Re sult [facility] [address] [place] [address], * (ABNORMAL) Comprehensive metabolic panel (09/11/2024 8:22 AM EDT) Sodium 141 133 - 145 mmol/L LAB CHEMISTRY METHOD 09/11/2024 10:11 [facility] Potassium 4.3 3.5 - 5.5 mmol/L LAB CHEMISTRY METHOD 09/11/2024 10:11 [facility] Chloride 110 96 - 110 mmol/L LAB CHEMISTRY METHOD 09/11/2024 10:11 AM [facility] CO2 21 21 - 32 mmol/L LAB CHEMISTRY METHOD 09/11/2024 10:11 AM [facility] Anion Gap 10 3 - 11 LAB CHEMISTRY METHOD 09/11/2024 10:11 AM [facility] Glucose 101(H) 70 - 100 mg/dL LAB CHEMISTRY METHOD 09/11/2024 10:11 AM [facility] BUN 18 5 - 25 mg/dL LAB CHEMISTRY METHOD 09/11/2024 10:11 AM [facility] Creatinine 1.17 0.70 - 1.30 mg/dL LAB CHEMISTRY METHOD 09/11/2024 10:11 AM [facility] eGFR 74 >=60 mL/min/1. 73m2 LAB CHEMISTRY METHOD 09/11/2024 10:11 AM [facility] Comment:Calculation based on the??Chronic Kidney Disease Epidemiology Collaboration (CKD-EPI) equation refit??without adjustment for race. BUN/Creatinine Ratio 15.4 LAB CHEMISTRY METHOD 09/11/2024 10:11 AM [facility] Calcium 8.9 8.5 - 10.5 mg/dL LAB CHEMISTRY METHOD 09/11/2024 10:11 AM [facility] AST (SGOT) 16 10 - 42 unit/L LAB CHEMISTRY METHOD 09/11/2024 10:11 AM [facility] ALT (SGPT) 34 10 - 60 unit/L LAB CHEMISTRY METHOD 09/11/2024 10:11 AM [facility] Alkaline Phosphatase 92 42 - 121 unit/L LAB CHEMISTRY METHOD 09/11/2024 10:11 AM [facility] Total Protein 7.3 6.0 - 8.0 g/dL LAB CHEMISTRY METHOD 09/11/2024 10:11 AM [facility] Albumin 3.9 3.2 - 5.0 g/dL LAB CHEMISTRY METHOD 09/11/2024 10:11 AM EDT [facility] Total Bilirubin 0.5 0.0 - 1.4 mg/dL LAB CHEMISTRY METHOD 09/11/2024 10:11 AM EDT [facility] Blood Venous blood specimen / Unknown Venipuncture / Unknown 09/11/2024 8:22 AM EDT 09/11/2024 9:16 AM EDT us Selena SAINI LAB BLOOD ORDERABLES Final Re sult [facility]) [facility] [address] [place] [address], * Exercise stress test (09/11/2024 8:19 AM EDT) Exercise/injec tion duration (min) 7 CV STRESS ONLY Exercise/injec tion duration (sec) 49 CV STRESS ONLY Peak SBP 172 mmHg CV STRESS ONLY Peak DBP 80 mmHg CV STRESS ONLY Peak HR 151 bpm CV STRESS ONLY Baseline HR 76 bpm CV STRES S ONLY Baseline SBP 120 mmHg CV STRE SS ONLY Baseline DBP 70 mmHg CV STRE SS ONLY Estimated workload 10.1 METS CV STRESS ONLY Percent HR 91 % CV STRESS ONLY Rate Pressure Product 25,972.0 mmHg*bpm CV STRESS ONLY Target HR 141 bpm CV STRESS ONLY O2 sat rest 97 % CV STRES S ONLY Max HR Percent 90 % CV ST RESS ONLY Anatomical Region Laterality Modality Cardiac Diagnost ic 09/11/2024 7:45 AM EDT 09/11/2024 8:18 AM EDT Narrative 09/11/2024 5:08 PM EDT ?Stress ECG was normal. No evidence of ischemia by ECG at this adequate level of stress. ?Exercise stress test was performed. Exercise capacity was average. Normal blood pressure response. Stress Findings A Colby protocol stress test was performed. Overall, the patient's exercise capacity was average. The patient reached stage 3. Total stress time was 7 min and 49 sec. The test was stopped because the patient experienced shortness of breath. The patient achieved the target heart rate. The patient's hemodynamic response was adequate for diagnosis. Blood pressure demonstrated a normal response. Heart rate demonstrated a normal response. Onset of symptoms occurred at Stage 3 of the protocol. The patient reported shortness of breath during the stress test. ECG This is a 53-year-old male with no cardiac medical history who presents today for an exercise stress test to rule out ischemia in the setting of chest discomfort. He is not on any calcium channel blockers or beta-blockers. The ECG shows sinus rhythm. Arrhythmias during stress: occasional premature ventricular contractions (PVCs) . There is no significant ST abnormalities during stress. Arrhythmias during recovery: rare premature ventricular contractions (PVCs). The result of the stress ECG was negative for ischemia. Selena SAINI CV STRESS PROCEDURES Final Re sult * Colonoscopy (07/08/2020) [facility] Colonoscopy No Interpretation , Abstracted Anatomical Region Laterality Modality Other Historical Provider HEALTH MAINTENANCE Final Result from Last 3 Months or Most Recently Relevant to Health [place] [id number] [facility] Care Teams Wiring Mechanic Relationship Specialty Start Date End Date Yolanda An MD [address] [place] [id number] PCP - General 12/08/1994
== END 2024-11-19 15:49 | disposition home or self-care (01) ==
LOC: HO.LAB 15:48
PROVIDERS: PCP Internal Medicine; Visit Provider Student in an Organized Health Care Education/Training Program
DX: M1A.0790 Idiopathic chronic gout, unspecified ankle and foot, without tophus (tophi) (principal)
CPT/HCPCS: 36415; 80053; 84550; 85025; 85652; 86140

== ENCOUNTER 2024-11-25 15:25 | Outpatient (AMB) | payer OTHER, SELFPAY ==
[2024-11-25 15:43] VITALS: BP 132/70; PULSE 71; O2SAT 96; BMI 32.4
--- NOTE | 2024-11-25 15:43 | A.OFFVIS_ITS ---
Vital Signs 11/25/24 15:43 Height 5 ft 6 in Weight 200 lb 9.93 oz BMI 32.4 BP 132/70 Blood Pressure Location Lt brachial Position Sitting Pulse 71 Pulse Source Pulse Oximeter Pulse Oximetry (%) 96 Oxygen Delivery Method Room Air Intake Visit Reasons: Gout Intake Note: Patient last seen by Doctor Rachel Helms on 03/26/24. Presents today for Gout follow up and test results. Allergies colchicine Adverse Reaction (Intermediate, Verified 11/25/24 15:48) Diarrhea indomethacin Adverse Reaction (Intermediate, Verified 11/25/24 15:48) Gastrointestinal Upset erythromycin base Adverse Reaction (Unknown, Verified 11/25/24 15:48) Unknown Medication List - Last Reconciled 11/27/24 by Stacey Peterson MD acetaminophen (Tylenol Extra Strength) 1,000 mg PO Q6H PRN allopurinol 300 mg PO DAILY ibuprofen 1,800 mg PO Q8H PRN loratadine (Claritin) 10 mg PO DAILY HPI Comments Details: Patient is a 54 y.o. 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 Helms. At that time he was on allopurinol 300mg without any flares of his gout Today, Continues to do well No flares Rheumatologic History: dx 2021 Allopurinol 02/2023 effective, couldn't tolerate colchicine Initial history: This is a 51-year-old male with a past medical history of nephrolithiasis s/p urologic procedure, dyslipidemia who presents for evaluation of possible gout. Condition started about 2 years ago with episodes of either right or left big toe pain swelling and erythema. To the point that he cannot walk or wear his shoes. Attacks usually resolve in a few days using NSAIDs, indomethacin or Motrin. He had 2 gout attacks this year, 1 in June and another 1 in August. He denies any other joint pain or swelling except for occasional stiffness of his right middle finger PIP and right thumb. He has history of kidney stones, he mentions more than 15 years ago he had a urologic procedure. He does not recall the kidney stone type. Has not had any recurrent kidney stones since the procedure. Current Rheumatology Medication(s): Allopurinol 300mg daily PFSH Medical History Nephrolithiasis Obesity Acute gout involving toe of right foot Hyperlipidemia GERD (gastroesophageal reflux disease) Surgical History Hx of removal of cyst Family History Mother Arthritis Breast cancer Father No problems noted. Social History Household Members: Spouse Household Members Other:: Son Alcohol intake: current Alcohol intake frequency: a few times a month Patient Tobacco Use Status: Never used Tobacco Current occupational status: employed Current occupation: [employer] Review of Systems Const Details: Review of Systems Constitutional: Denies fever, chills, weight loss ENT: Denies vision changes, eye pain or eye redness, dental caries, dry mouth GI: Denies nausea, vomiting, diarrhea, abdominal pain, change in BM Pulm: Denies SOB, PEARSON, hemoptysis, wheezing Cards: Denies chest pain, palpitations Skin: Denies Raynaud's, rash, nail changes, photosensitivity, BREAK AND LOAD OPERATOR: Denies headaches, weakness, paresthesias, recurrent falls MSK: as per HPI All other systems reviewed and are unremarkable except noted above Physical Exam Vital Signs: Last Vital Signs Pulse 71 11/25/24 15:43 BP 132/70 11/25/24 15:43 Pulse Ox 96 11/25/24 15:43 Oxygen Delivery Method Room Air 11/25/24 15:43 BMI result Body Mass Index 32.4 Vital signs reviewed Physical Examination CONSTITUITIONAL Patient alert and cooperative. Well appearing and in no apparent painful distress HEENT Conjunctiva and sclera clear. No lymphadenopathy. CHEST/RESPIRATORY SYSTEM Normal respiratory effort and able to speak in complete sentences. Clear to auscultation bilaterally. No crackles, rales, rhonchi, wheezes heard. CARDIAC SYSTEM Regular rate and rhythm. S1 and S2 heard no murmurs. Radial pulses intact bilaterally MSK Hands * Right Hand: Able to make a fist. No swelling or tenderness to palpation of these joints. * Left Hand: Able to make a fist. No swelling or tenderness to palpation of these joints. * Bilateral herbeden's nodes noted Wrists * Right Wrist: Full ROM. 70 degrees of wrist flexion, 80 degrees of wrist extension. No swelling or TTP * Left Wrist: Full ROM. 70 degrees of wrist flexion, 80 degrees of wrist extension. No swelling or TTP Elbows * Right Elbow: Full ROM. No swelling or TTP. No TTP of the medial and lateral epicondyles * Left Elbow: Full ROM. No swelling or TTP. No TTP of the medial and lateral epicondyles Shoulders * Right shoulder: Full ROM. No swelling noted. No TTP of the AC joint, subacromial bursa or posterior shoulder * Left shoulder: Full ROM. No swelling noted. No TTP of the AC joint, subacromial bursa or posterior shoulder Knees * Right knee: Full ROM. No swelling noted. No TTP of the knee joint lie or pes anserine bursa * Left knee: Full ROM. No swelling noted. No TTP of the knee joint lie or pes anserine bursa. Ankles * Right ankle: Good ankle dorsiflexion and plantar flexion. No swelling. No TTP of the ankle joint * Left ankle: Good ankle dorsiflexion and plantar flexion. No swelling. No TTP of the ankle joint Feet * Right foot: Negative squeeze test * Left foot: Negative squeeze test Tender points? * No tenderness to palpation of the bilateral trapezius, supraspinatus, anterior costochondral junctions, bilateral suboccipital muscle insertions SKIN No rashes. No Tophi Results Reviewed Results Reviewed: Laboratory Tests 11/19/24 16:05 WBC 5.8 RBC 4.69 Hgb 15.2 Hct 42.8 Plt Count 277 ESR 5 Sodium 141 Potassium 4.1 Chloride 106 Carbon Dioxide 29 BUN 17 H Creatinine 1.03 Uric Acid 4.9 Calcium 8.4 D AST 26 ALT 32 C-Reactive Protein < 0.10 Assessment & Plan Assessment & Plan (1) Gout: Comment: dx 2021 Allopurinol 02/2023 effective, couldn't tolerate colchicine Code(s): M10.9 - Gout, unspecified Category: Medical Qualifiers: Gout site: toe Gout etiology: idiopathic Chronicity: chronic Laterality: unspecified laterality Presence of tophus: without tophus Qualified Code(s): M1A.0790 - Idiopathic chronic gout, unspecified ankle and foot, without tophus (tophi) Plan: #Gout Patient is a 54 y.o. male with non crystal proven, non tophaceous gout currently in remission. Plan - Allopurinol 300mg daily - RTC 6 months - Labs before visit: CMP, UA, ESR, CRP (2) On allopurinol therapy: Code(s): Z79.899 - Other senior living (current) drug therapy Plan: #Long-term Current Use of Allopurinol Risks and benefits of allopurinol discussed with patient Benefits include decreased gout flares, remission of gout and reduction of tophi Risks include allopurinol hypersensitivity syndrome which is a severe cutaneous adverse reaction associated with allopurinol use particularly in patients who are HLA B*5801 positive, increased transaminases, GI upset including diarrhea, nausea and vomiting, and other dermatologic manifestations. Plan I spent 20 minutes reviewing the record and labs, taking a history, examining the patient, discussing the treatment plan, ordering diagnostic work up and documenting in the medical record Orders: Orders C Reactive Protein 6 Months M1A.0790 - Idiopathic chronic gout, unspecified a nkle and foot, without tophus (tophi) Erythrocyte Sedimentation Rate 6 Months M1A.0790 - Idiopathic chronic gout, unspecified ankle and foot, without tophus (tophi) Comprehensive Met. 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
--- OUTSIDE RECORDS SUMMARY | 2024-11-25 17:40 | XMS_ITS | Clinical Summary ---
Author Organization [facility] Address [address] [place] [phone] Phone Care Team Providers Care [employer] Name Role Phone Yolanda An MD Primary Care Provider [phone] Allergies Active Allergy Reactions Criticality Noted Date [...] Description 09/11/2024 7:30 AM EDT Ancillary Procedure [facility] [address] [place] [address] Chest pain, unspecified type from Last 3 Months Immunizations Name Administration Dates Next Due Hepatitis B (Lopzukl-B-Dsxdf , Recombivax HB-Adult) 19yo and older 09/20/2003,04/21/2003,03/22/2003 [...] Date Site/Laterality Comments OTHER SURGICAL HISTORY PROCEDURE: [place] 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 1ST OTHER [...] 77 08/04/2024 2:19 PM EST Temperature 36.3 C (97.4 F) 08/04/2024 2:19 PM EST Respiratory Rate 14 08/04/2024 2:19 PM EST [...] 9:00 AM EDT Office Visit Adult Medicine [address] [phone] Yolanda An MD [address] [place] [phone] Health Maintenance Due Date Last Done Comments [...] ( season) 2024 09/26/2020, 09/05/2020 Influenza Vaccine (Season [...] LAB CHEMISTRY METHOD 09/11/2024 11:21 AM EDT [facility] Blood Venous blood specimen / Unknown Venipuncture / Unknown 09/11/2024 8:22 AM EDT 09/11/2024 9:16 AM EDT Narrative [facility] - 09/11/2024 11:21 AM EDT The Siemens Advia Centaur Chemiluminescent Immunoassay is used. Results obtained with different assay methods or kits cannot be used interchangeably. Results cannot be interpreted as absolute evidence of the presence or absence of malignant disease. us Selena SAINI LAB BLOOD ORDERABLES Final Re sult Performing Organization Address [facility] Co de Phone Number [facility] [address] [place] [address], [place] [phone] * Interferon gamma interpretation (09/11/2024 8:22 AM EDT) [facility] Quantiferon Plus Interpretation Negative Negative LAB CHEMISTRY METHOD 09/12/2024 11:51 AM EDT [facility] Blood Venous blood specimen / Unknown Venipuncture / Unknown 09/11/2024 8:22 AM EDT 09/11/2024 9:15 AM EDT us Selena SAINI LAB BLOOD ORDERABLES Final Re sult Performing Organization Address [facility]/ZIP Co de Phone Number [facility] [address] [place] [address], [place] [phone] * Interferon gamma antigen 2 (09/11/2024 8:22 AM EDT) Blood Venous blood specimen / Unknown Venipuncture / Unknown 09/11/2024 8:22 AM EDT 09/11/2024 9:15 AM EDT us Selena SAINI LAB BLOOD ORDERABLES Final Re sult Performing Organization Address [facility]/ZIP Co de Phone Number [facility] [address] [place] [address], [place] [phone] * Inteferon gamma antigen 1 (09/11/2024 8:22 AM EDT) Blood Venous blood specimen / Unknown Venipuncture / Unknown 09/11/2024 8:22 AM EDT 09/11/2024 9:15 AM EDT us Selena SAINI LAB BLOOD ORDERABLES Final Re sult Performing Organization Address [facility]/ZIP Co de Phone Number [facility] [address] [place] [address], [place] [phone] * Interferon gamma mitogen (09/11/2024 8:22 AM EDT) Blood Venous blood specimen / Unknown Venipuncture / Unknown 09/11/2024 8:22 AM EDT 09/11/2024 9:15 AM EDT us Selena SAINI LAB BLOOD ORDERABLES Final Re sult Performing Organization Address [facility]/ZIP Co de Phone Number [facility] [address] [place] [address], [place] [phone] * Interferon gamma NIL (09/11/2024 8:22 AM EDT) Blood Venous blood specimen / Unknown Venipuncture / Unknown 09/11/2024 8:22 AM EDT 09/11/2024 9:15 AM EDT us Selena SAINI LAB BLOOD ORDERABLES Final Re sult Performing Organization Address [facility]/[place] de Phone Number [facility] [address] [place] [address], [place] [phone] * (ABNORMAL) Lipid panel with reflex to direct LDL (09/11/2024 8:22 AM EDT) Cholesterol 197 0 - 200 mg/dL LAB CHEMISTRY METHOD 09/11/2024 10:11 AM EDT [facility] Triglycerides 203(H) 0 - 150 mg/dL LAB CHEMISTRY METHOD 09/11/2024 10:11 AM EDT [facility] HDL 39(L) >=40 mg/dL LAB CHEMISTRY METHOD 09/11/2024 10:11 AM EDT [facility] LDL Calculated 117(H) 0 - 100 mg/dL LAB CHEMISTRY METHOD 09/11/2024 10:11 AM EDT [facility] VLDL Cholesterol Brendan 40.6 mg/dL LAB CHEMISTRY METHOD 09/11/2024 10:11 AM EDT [facility] Non HDL Chol. (LDL+VLDL) 158(H) <145 mg/dL LAB CHEMISTRY METHOD 09/11/2024 10:11 AM EDT [facility] Chol/HDL Ratio 5.1(H) 0.0 - 4.4 LAB CHEMISTRY METHOD 09/11/2024 10:11 AM EDT [facility] Blood Venous blood specimen / Unknown Venipuncture / Unknown 09/11/2024 8:22 AM EDT 09/11/2024 9:16 AM EDT us Selena SAINI LAB BLOOD ORDERABLES Final Re sult [facility] [address] [place] [address], * CBC auto differential (09/11/2024 8:22 AM EDT) WBC 5.0 4.8 - 10.8 K/[facility] LAB HEMETOLOGY METHOD 09/11/2024 9:30 AM [facility] RBC 5.10 4.50 - 5.50 M/[facility] LAB HEMETOLOGY METHOD 09/11/2024 9:30 [facility] Hemoglobin 16.3 13.5 - 17.5 g/dL LAB HEMETOLOGY METHOD 09/11/2024 9:30 AM [facility] Hematocrit 47.8 42.0 - 54.0 % LAB HEMETOLOGY METHOD 09/11/2024 9:30 AM [facility] MCV 93.7 79.0 - 98.0 FL LAB HEMETOLOGY METHOD 09/11/2024 9:30 AM T [facility] MCH 32.0 27.0 - 32.0 pcg LAB HEMETOLOGY METHOD 09/11/2024 9:30 AM [facility] MCHC 34.1 32.0 - 37.0 g/dL LAB HEMETOLOGY METHOD 09/11/2024 9:30 AM [facility] RDW 12.2 11.0 - 15.0 % LAB HEMETOLOGY METHOD 09/11/2024 9:30 AM [facility] Platelets 301 130 - 400 K/mcL LAB HEMETOLOGY METHOD 09/11/2024 9:30 AM [facility] MPV 9.7 7.0 - 11.0 FL LAB HEMETOLOGY METHOD 09/11/2024 9:30 AM [facility] NRBC 0.0 <1.0 % LAB HEMETOLOGY METHOD 09/11/2024 9:30 AM [facility] NRBC Absolute 0.00 <0.10 K/mcL LAB HEMETOLOGY METHOD 09/11/2024 9:30 AM [facility] Neutrophils Relative 44.2 % LAB HEMETOLOGY METHOD 09/11/2024 9:30 AM [facility] Lymphocytes Relative 45.4 % LAB HEMETOLOGY METHOD 09/11/2024 9:30 AM [facility] Monocytes Relative 6.6 % LAB HEMETOLOGY METHOD 09/11/2024 9:30 AM [facility] Eosinophils Relative 2.6 % LAB HEMETOLOGY METHOD 09/11/2024 9:30 AM [facility] Basophils Relative 1.0 % LAB HEMETOLOGY METHOD 09/11/2024 9:30 AM [facility] Immature Granulocytes Relative 0.2 % LAB HEMETOLOGY METHOD 09/11/2024 9:30 AM [facility] Neutrophils Absolute 2.22 1.50 - 7.00 K/[facility] LAB HEMETOLOGY METHOD 09/11/2024 9:30 AM EDT [facility] Lymphocytes Absolute 2.28 1.00 - 5.00 K/[facility] LAB HEMETOLOGY METHOD 09/11/2024 9:30 AM EDT [facility] Monocytes Absolute 0.33 0.20 - 1.00 K/[facility] LAB HEMETOLOGY METHOD 09/11/2024 9:30 AM EDT [facility] Eosinophils Absolute 0.13 0.00 - 0.50 K/[facility] LAB HEMETOLOGY METHOD 09/11/2024 9:30 AM EDT [facility] Basophils Absolute 0.05 0.00 - 0.20 K/[facility] LAB HEMETOLOGY METHOD 09/11/2024 9:30 AM EDT [facility] Immature Granulocytes Absolute 0.01 0.00 - 0.03 K/[facility] LAB HEMETOLOGY METHOD 09/11/2024 9:30 AM EDT [facility] Blood Venous blood specimen / Unknown Venipuncture / Unknown 09/11/2024 8:22 AM EDT 09/11/2024 9:14 AM EDT us Selena SAINI LAB BLOOD ORDERABLES Final Re sult [facility] [address] [place] [address], * (ABNORMAL) Comprehensive metabolic panel (09/11/2024 8:22 AM EDT) Sodium 141 133 - 145 mmol/L LAB CHEMISTRY METHOD 09/11/2024 10:11 AM EDT [facility] Potassium 4.3 3.5 - 5.5 mmol/L LAB CHEMISTRY METHOD 09/11/2024 10:11 AM [facility] Chloride 110 96 - 110 mmol/L LAB CHEMISTRY METHOD 09/11/2024 10:11 AM [facility] CO2 21 21 - 32 mmol/L LAB CHEMISTRY METHOD 09/11/2024 10:11 AM [facility] Anion Gap 10 3 - 11 LAB CHEMISTRY METHOD 09/11/2024 10:11 AM [facility] Glucose 101(H) 70 - 100 mg/dL LAB CHEMISTRY METHOD 09/11/2024 10:11 AM [facility] BUN 18 5 - 25 mg/dL LAB CHEMISTRY METHOD 09/11/2024 10:11 AM [facility] Creatinine 1.17 0.70 - 1.30 mg/dL LAB CHEMISTRY METHOD 09/11/2024 10:11 AM [facility] eGFR 74 >=60 mL/min/1. 73m2 LAB CHEMISTRY METHOD 09/11/2024 10:11 AM [facility] Comment:Calculation based on the Chronic Kidney Disease Epidemiology Collaboration (CKD-EPI) equation refit without adjustment for race. BUN/Creatinine Ratio 15.4 LAB CHEMISTRY METHOD 09/11/2024 10:11 AM [facility] Calcium 8.9 8.5 - 10.5 mg/dL LAB CHEMISTRY METHOD 09/11/2024 10:11 AM [facility] AST (SGOT) 16 10 - 42 unit/L LAB CHEMISTRY METHOD 09/11/2024 10:11 AM [facility] ALT (SGPT) 34 10 - 60 unit/L LAB CHEMISTRY METHOD 09/11/2024 10:11 AM [facility] Alkaline Phosphatase 92 42 - 121 unit/L LAB CHEMISTRY METHOD 09/11/2024 10:11 AM [facility] Total Protein 7.3 6.0 - 8.0 g/dL LAB CHEMISTRY METHOD 09/11/2024 10:11 AM [facility] Albumin 3.9 3.2 - 5.0 g/dL LAB CHEMISTRY METHOD 09/11/2024 10:11 AM EDT [facility] Total Bilirubin 0.5 0.0 - 1.4 mg/dL LAB CHEMISTRY METHOD 09/11/2024 10:11 AM EDT [facility] Blood Venous blood specimen / Unknown Venipuncture / Unknown 09/11/2024 8:22 AM EDT 09/11/2024 9:16 AM EDT us Selena SAINI LAB BLOOD ORDERABLES Final Re sult [facility] [address] [place] [address], * Exercise stress test (09/11/2024 8:19 AM [...] AM EDT Narrative 09/11/2024 5:08 PM EDT Stress ECG was normal. No evidence of ischemia by ECG at this adequate level of stress. Exercise stress test was performed. Exercise capacity was [...] PROCEDURES Final Re sult * Colonoscopy (07/08/2020) [facility] Colonoscopy No Interpretation , Abstracted Anatomical Region Laterality Modality Other Historical Provider MD HEALTH MAINTENANCE Final Result from Last 3 Months or Most Recently Relevant to Health Maintenance Insurance [facility] Care Teams [employer] Relationship Specialty Start Date End Date Yolanda An MD [address] [place], [place] [phone] [facility] - General 12/08/1994
== END 2024-11-25 16:13 | disposition home or self-care (01) ==
LOC: HO.RHE 15:25
PROVIDERS: PCP Internal Medicine; Visit Provider Student in an Organized Health Care Education/Training Program
DX: M1A.0790 Idiopathic chronic gout, unspecified ankle and foot, without tophus (tophi) (principal); Z79.899 Other long term (current) drug therapy
CPT/HCPCS: 99213